=== PATIENT | male | born 1960 | race Caucasian/White ===

== ENCOUNTER 2018-02-19 22:17 | Inpatient (IN) | payer OTHER ==
[2018-02-19] MEDS ORDERED: NA CHLORIDE 0.9% 1,000 ML ONE (23:03)
[2018-02-19] MEDS ORDERED: ONDANSETRON 4 MG/2 ML VIAL ONE (23:03)
[2018-02-19] MEDS ORDERED: MORPHINE 4 MG/ML SYR ONE (23:03)
[2018-02-19 23:04] LABS: Absolute Lymphocytes (CBC) 3.2 K/uL (0.7-4.9); Absolute Monocytes 1.4 K/uL (0.1-1.3); Absolute Neutrophil 6.2 K/uL (1.8-8.0); Basophils % 0.7 % (0-1.3); Eosinophils % 2.8 % (0-4.4); Hematocrit 46.4 % (39.6-49.0); MCH 31.7 pg (27.0-35.0); MCV 92.4 fL (80-100); MPV 10.1 fL (7.6-11.3); Monocytes % 12.2 % (3.3-12.3); RBC Red Blood Cell Count 5.02 M/uL (4.33-5.43)
[2018-02-19 23:15] LABS: Potassium 3.5 mEq/L (3.6-5.0)
[2018-02-19 23:21] LABS: Albumin 4.4 g/dL (3.2-5.5); Bilirubin Direct 0.1 mg/dL (0-0.2); Bilirubin Total 0.8 mg/dL (0.3-1.2)
[2018-02-20 00:40] LABS: Urine Blood 2+ (NEG); Urine Glucose NEGATIVE (NEG); Urine Protein NEGATIVE (NEG)
[2018-02-20 00:50] LABS: Urine Bacteria <20 /HPF (NONE SEEN); Urine Culture Reflex Order NOT NEEDED
--- NOTE | 2018-02-20 01:03 | ER ---
Nurse's Notes [facility] Name: Harriet Sanders Age: 57 yrs Sex: Male : 1960 Arrival Date: 02/19/2018 Time: 22:19 Bed 6 Private MD: Rosalia Manzano C Diagnosis: Calculus of lower urinary tract Presentation: 02/19 22:35 Presenting complaint: Patient states: right flank pain, hx of kidney stones started tl3 today. Transition of care: patient was not received from another setting of care. Onset of symptoms was February 19, 2018 at 22:36. Risk Assessment: Do you want to hurt yourself or someone else? Patient reports no desire to harm self or others. Initial Sepsis Screen: Does the patient meet any 2 criteria? No. Patient's initial sepsis screen is negative. Does the patient have a suspected source of infection? No. Patient's initial sepsis screen is negative. Care prior to arrival: None. 22:35 Method Of Arrival: Ambulatory tl3 22:35 Acuity: WAQAS 3 tl3 Triage Assessment: 22:37 General: Appears distressed, uncomfortable, Behavior is cooperative. tl3 22:41 GI: actively vomiting in triage. tl3 Historical: - Home Meds: 22:37 Lisinopril Oral [Active]; aspirin 81 mg Oral chew 1 tab once daily [Active]; tl3 02/20 02:19 carvedilol 6.25 mg oral tab 1 tab 2 times per day [Active]; ao - PMHx: 02:15 Hypertension; GERD; ao - PSHx: 02/19 22:37 Knee surgery; tl3 - Immunization history:: Adult Immunizations up to date. - Social history:: Smoking status: unknown. - Ebola Screening: : Patient denies travel to an Ebola-affected area in the 21 days before illness onset. Screenin:11 Abuse screen: Denies threats or abuse. Denies injuries from another. Nutritional ao screening: No deficits noted. Tuberculosis screening: No symptoms or risk factors identified. Fall Risk None identified. Assessment: 23:10 General: Appears in no apparent distress. uncomfortable, Behavior is calm, cooperative, ao appropriate for age. Pain: Complains of pain in Right flank Pain currently is 8 out of 10 on a pain scale. Neuro: Level of Consciousness is awake, alert, obeys commands, Oriented to person, place, time, situation, Appropriate for age Moves all extremities. Speech is normal, Facial symmetry appears normal, Pupils are PERRLA. Cardiovascular: Capillary refill < 3 seconds Patient's skin is warm and dry. Respiratory: Airway is patent Respiratory effort is even, unlabored, Respiratory pattern is regular, symmetrical. GI: Abd is soft and non tender X 4 quads. : Reports pain in right flank(s). EENT: No signs and/or symptoms were reported regarding the EENT system. Derm: Musculoskeletal: Circulation, motion, and sensation intact. Range of motion:. 23:44 Reassessment: Patient appears in no apparent distress at this time. Patient and/or ao family updated on plan of care and expected duration. Pain level reassessed. Patient is alert, oriented x 3, equal unlabored respirations, skin warm/dry/pink. 02/20 00:47 Reassessment: Patient appears in no apparent distress at this time. Patient and/or ao family updated on plan of care and expected duration. Pain level reassessed. Patient is alert, oriented x 3, equal unlabored respirations, skin warm/dry/pink. 01:14 Reassessment: Received an verbal order from Dr jones to medicate patient with morphine ao 4 mg and Zofran 4 mg. 01:17 Reassessment: Patient to be admitted to the hospital. Patient aware and agree with POC. ao 02:02 Reassessment: Patient appears in no apparent distress at this time. Patient and/or ao family updated on plan of care and expected duration. Pain level reassessed. Patient is alert, oriented x 3, equal unlabored respirations, skin warm/dry/pink. Patient to be taking to his room. Vital Signs: 02/19 22:37 BP 226 / 114; Pulse 74; Resp 18; Temp 98.0; Pulse Ox 98% ; Weight 113.4 kg; Height 6 tl3 ft. 2 in. (187.96 cm); 23:12 BP 171 / 89; Pulse 73; Resp 28; Pulse Ox 94% on R/A; ao 23:44 BP 152 / 82; Pulse 75; Resp 21; Pulse Ox 96% ; Pain 0/10; ao 02/20 00:47 BP 155 / 80; Pulse 78; Resp 17; Pulse Ox 95% ; Pain 0/10; ao 02:02 BP 139 / 78; Pulse 76; Resp 17; Pulse Ox 100% on R/A; Pain 0/10; ao 06/ 22:37 Body Mass Index 32.10 (113.40 kg, 187.96 cm) tl3 ED Course: 02/19 22:19 Patient arrived in ED. es 22:19 Rosalia Manzano MD is Private Physician. es 22:36 Triage completed. tl3 22:37 Arm band placed on right wrist. tl3 22:41 Nick Shore MD is Attending Physician. tw4 22:55 Initial lab(s) drawn, by ED staff, sent to lab. Inserted saline lock: 18 gauge in left aa1 antecubital area, using aseptic technique. ,using aseptic technique. by tech. Triny 22:58 Radiology exam delayed due to pt requested pain meds prior to ct. cw1 22:59 Trey Mora, RN is Primary Nurse. ao 23:12 Patient has correct armband on for positive identification. Pulse ox on. NIBP on. ao 23:25 CT Stone Protocol In Process Unspecified. EDMS 02/20 00:59 Rosalia Manzano MD is Hospitalizing Provider. tw4 02:26 No provider procedures requiring assistance completed. Patient admitted, IV remains in ao place. Administered Medications: 02/19 22:59 CANCELLED (Physician Discretion): NS 0.45 % with KCl 20 mEq/L 1000 ml IV at 125 ml/hr aa1 once 23:09 Drug: morphine 4 mg Route: IVP; Site: left antecubital; ao 02/20 00:10 Follow up: Response: No adverse reaction; Pain is decreased ao 02/19 23:09 Drug: Zofran 4 mg Route: IVP; Site: left antecubital; ao 02/20 00:10 Follow up: Response: No adverse reaction ao 02/19 23:09 Drug: NS 0.9% 1000 ml Route: IV; Rate: 1000 ml; Site: left antecubital; ao 02/20 02:27 Follow up: IV Status: Completed infusion; IV Intake: 1000ml ao 01:16 Drug: morphine 4 mg Route: IVP; Site: left antecubital; ao 01:43 Follow up: Response: No adverse reaction ao 01:16 Drug: Zofran 4 mg Route: IVP; Site: left antecubital; ao 01:44 Follow up: Response: No adverse reaction ao 01:57 Drug: TORadol 30 mg Route: IVP; Site: left antecubital; ao 02:28 Follow up: Response: No adverse reaction ao Intake: 02:27 IV: 1000ml; Total: 1000ml. ao Outcome: 01:02 Decision to Hospitalize by Provider. tw4 02:26 Admitted to Med/surg accompanied by tech, room 209, with chart, Report called to [place] LVN 02:26 Condition: stable 02:26 Instructed on the need for admit. 02:28 Patient left the ED. ao Signatures: Dispatcher [employer] Sabrina Martin RN RN aa1 Lizett Chow Crystal cw1 Trey Mora RN RN ao Wadley, Terrence, MD MD tw4 Janee Coleman RN RN tl3 Corrections: (The following items were deleted from the chart) 02:19 06/02 22:37 Home Meds: Metoprolol Tartrate Oral; tl3 ao
--- NOTE | 2018-02-20 01:03 | EDPHYS ---
Physician Documentation [facility] Name: Harriet Sanders Age: 57 yrs Sex: Male : 1960 Arrival Date: 02/19/2018 Time: 22:19 Bed 6 Private MD: Rosalia Manzano C ED Physician Nick Shore Historical: - Home Meds: 02/19 22:37 Lisinopril Oral [Active]; aspirin 81 mg Oral chew 1 tab once daily [Active]; tl3 02/20 02:19 carvedilol 6.25 mg oral tab 1 tab 2 times per day [Active]; ao - PMHx: 02:15 Hypertension; GERD; ao - PSHx: 02/19 22:37 Knee surgery; tl3 - Immunization history:: Adult Immunizations up to date. - Social history:: Smoking status: unknown. - Ebola Screening: : Patient denies travel to an Ebola-affected area in the 21 days before illness onset. Vital Signs: 22:37 BP 226 / 114; Pulse 74; Resp 18; Temp 98.0; Pulse Ox 98% ; Weight 113.4 kg; Height 6 tl3 ft. 2 in. (187.96 cm); 23:12 BP 171 / 89; Pulse 73; Resp 28; Pulse Ox 94% on R/A; ao 23:44 BP 152 / 82; Pulse 75; Resp 21; Pulse Ox 96% ; Pain 0/10; ao 02/20 00:47 BP 155 / 80; Pulse 78; Resp 17; Pulse Ox 95% ; Pain 0/10; ao 02:02 BP 139 / 78; Pulse 76; Resp 17; Pulse Ox 100% on R/A; Pain 0/10; ao 02/19 22:37 Body Mass Index 32.10 (113.40 kg, 187.96 cm) tl3 MDM: 02/19 22:41 Patient medically screened. tw4 02/19 22:43 Order name: Amylase, Serum; Complete Time: 07:07 tw4 02/19 22:43 Order name: Basic Metabolic Panel; Complete Time: 07:07 tw4 02/19 22:43 Order name: CBC with Diff; Complete Time: 07:07 4 02/19 22:43 Order name: Creatinine for Radiology; Complete Time: 07:07 tw4 02/19 22:43 Order name: Hepatic Function; Complete Time: 07:07 tw4 02/19 22:43 Order name: Lipase; Complete Time: 07:07 tw4 02/19 22:43 Order name: Urine Microscopic Only; Complete Time: 07:07 tw4 02/19 22:43 Order name: CT Stone Protocol; Complete Time: 07:07 tw4 02/20 00:30 Order name: Urine Dipstick--Ancillary (enter results); Complete Time: 07:07 ms 02/19 22:43 Order name: IV Saline Lock; Complete Time: 22:57 tw4 02/19 22:43 Order name: Labs collected and sent; Complete Time: 22:57 tw4 02/19 22:43 Order name: Urine Dipstick-Ancillary (obtain specimen); Complete Time: 00:19 tw4 02/20 01:35 Order name: CONS Pharmacy Consult EDMS 02/20 01:35 Order name: NPO EDMS 02/20 01:37 Order name: CONS Pharmacy Consult EDMS 02/20 01:37 Order name: NPO EDMS Administered Medications: 22:59 CANCELLED (Physician Discretion): NS 0.45 % with KCl 20 mEq/L 1000 ml IV at 125 ml/hr aa1 once 23:09 Drug: morphine 4 mg Route: IVP; Site: left antecubital; ao 02/20 00:10 Follow up: Response: No adverse reaction; Pain is decreased ao 02/19 23:09 Drug: Zofran 4 mg Route: IVP; Site: left antecubital; ao 02/20 00:10 Follow up: Response: No adverse reaction ao 02/19 23:09 Drug: NS 0.9% 1000 ml Route: IV; Rate: 1000 ml; Site: left antecubital; ao 02/20 02:27 Follow up: IV Status: Completed infusion; IV Intake: 1000ml ao 01:16 Drug: morphine 4 mg Route: IVP; Site: left antecubital; ao 01:43 Follow up: Response: No adverse reaction ao 01:16 Drug: Zofran 4 mg Route: IVP; Site: left antecubital; ao 01:44 Follow up: Response: No adverse reaction ao 01:57 Drug: TORadol 30 mg Route: IVP; Site: left antecubital; ao 02:28 Follow up: Response: No adverse reaction ao Disposition: 02/20/18 01:02 Hospitalization ordered by Rosalia Manzano for Observation. Preliminary diagnosis is Calculus of lower urinary tract. - Bed requested for Telemetry/MedSurg (observation). - Status is Observation. ao - Condition is Stable. - Problem is new. - Symptoms have improved. UTI on Admission? No Addendum: 03/04/2018 06:56 Addendum: Pt is a 57 year old male that complains of right flank pain that started t w4 today. Pt states that he has mild nausea and but no vomiting. Pt has had a history of kidney stones and that this pain feels similar. Addendum: ROS: Constitutional: negative for fever chills Resp: negative for SOB, MCNEILL CV: negative for CP, MCNEILL, palpitations Abdomen: negative for abdominal pain, vomiting diarrhea Back: positive for flank pain, negative for injury Ext; negative for injury, edema. Addendum: PE: General: well developed well nourished male in mild distress, HEENT: PERRLA, EOMI Resp: CTAB, no resp distress CV: RRR, nl S1, S2 Abdomen: normal BS, ND/NT Back: right CVA tenderness no vertebral tenderness. Addendum: . 07:07 Addendum: ED course: pt found to have 4 mm calculus in the right ureter with mild t w4 hydronephrosis. pt received Toradol and Morphine states that he feels better. Pt received IVF with NS. Pt told to followup with Urology and told to return if symptoms worsen. Signatures: Dispatcher [employer] EDMS Sarah Carmen RN RN kl Kern, Alissa, RN RN aa1 Trey Mora RN RN ao Wadley, Terrence, MD MD tw4 Janee Coleman RN RN tl3 Corrections: (The following items were deleted from the chart) 02/19 22:59 22:43 NS 0.45 % with KCl 20 mEq/L 1000 ml IV at 125 ml/hr once ordered. tw4 aa1 02/20 01:58 01:02 Hospitalization Ordered by Rosalia Manzano MD for Observation. Preliminary diagnosis is kl Calculus of lower urinary tract. Bed requested for Telemetry/MedSurg (observation). Status is Observation. Condition is Stable. Problem is new. Symptoms have improved. UTI on Admission? No. tw4 02:19 02/19 22:37 Home Meds: Metoprolol Tartrate Oral; tl3 ao 02/20 02:28 01:58 02/20/2018 01:02 Hospitalization Ordered by Rosalia Manzano MD for Observation. ao Preliminary diagnosis is Calculus of lower urinary tract. Bed requested for Telemetry/MedSurg (observation). Status is Observation. Condition is Stable. Problem is new. Symptoms have improved. UTI on Admission? No. kl
[2018-02-20] MEDS ORDERED: ONDANSETRON 4 MG/2 ML VIAL ONE (01:13)
[2018-02-20] MEDS ORDERED: MORPHINE 4 MG/ML SYR ONE (01:13)
[2018-02-20] MEDS ORDERED: HYDROMORPHONE HCL 1 MG/ML INJ IV PRN ×2 (01:35→09:49)
[2018-02-20] MEDS ORDERED: MORPHINE 2 MG/ML SYR IV PRN (01:35)
[2018-02-20] MEDS ORDERED: ONDANSETRON 4 MG/2 ML VIAL IV PRN ×2 (01:35→10:33)
[2018-02-20] MEDS ORDERED: KETOROLAC 30 MG/ML INJ ONE (01:54)
[2018-02-20 03:01] VITALS: BMI 32.1
[2018-02-20] MEDS ORDERED: HYDROMORPHONE HCL 2 MG/ML inj ONE (05:11)
--- NOTE | 2018-02-20 09:25 | RAD REPORT ---
EXAM DESCRIPTION: CT - Stone Protocol - 02/20/2018 2:16 am CLINICAL HISTORY: Abdominal pain. Right flank pain COMPARISON: 11/2016 TECHNIQUE: Computed axial tomography of the abdomen pelvis was obtained without oral or IV contrast. Lack of IV and oral contrast limits evaluation of solid organs, bowel, and vessels. Coronal reformat maribel images were obtained and reviewed. A preliminary report was generated by [employer] and reviewed prior to this dictation tissue All CT scans are performed using dose optimization technique as appropriate and may include automated exposure control or mA/KV adjustment according to patient size. FINDINGS: Mild right hydronephrosis is present. A renal calculus is not seen. The right ureter is di lated. A 4 millimeter calculus Hounsfield unit 859 is present within the distal right ureter. A left renal calculus is not seen. The liver, spleen, pancreas and adrenals appear grossly normal There is no evidence of diverticulitis. The appendix appears normal Small inguinal hernias contain fat IMPRESSION: Negative for a genitourinary calculus
[2018-02-20] MEDS: HYDROMORPHONE HCL 2 MG/ML inj IV PRN ×4 (09:57→21:46)
[2018-02-20 10:09] LABS: Urine Appearance TURBID; Urine Bilirubin NEGATIVE (NEG); Urine Blood 3+ (NEG); Urine Color DK YELLOW; Urine Glucose NEGATIVE (NEG); Urine Protein NEGATIVE (NEG); Urine Specific Gravity 1.025 (1.005-1.030); Urine Urobilinogen 0.2 mg/dL (0.2-1.0); Urine pH 5.5 (5.0-7.0)
[2018-02-20 10:19] LABS: Urine Microscopic Reflex ORDER UMIC
[2018-02-20 10:22] LABS: Urine Amorphous Sediment 2+ /HPF (NONE SEEN); Urine Bacteria <20 /HPF (NONE SEEN); Urine Culture Reflex Order NOT NEEDED
[2018-02-20] MEDS: LISINOPRIL 20 MG TAB PO SCH (10:53)
[2018-02-20] MEDS: NA CHLORIDE 0.9% 1,000 ML IV SCH ×2 (10:53→21:47)
[2018-02-20] MEDS: CEFTRIAXONE/SWI 1gm 1 GM/10 ML SYR IVP SCH ×2 (10:54→21:47)
[2018-02-20 10:57] LABS: Absolute Lymphocytes (CBC) 2.2 K/uL (0.7-4.9); Absolute Monocytes 1.1 K/uL (0.1-1.3); Absolute Neutrophil 6.1 K/uL (1.8-8.0); Basophils % 0.6 % (0-1.3); Eosinophils % 1.7 % (0-4.4); Hematocrit 43.7 % (39.6-49.0); MCH 31.4 pg (27.0-35.0); MCV 93.4 fL (80-100); MPV 9.8 fL (7.6-11.3); Monocytes % 11.4 % (3.3-12.3); RBC Red Blood Cell Count 4.68 M/uL (4.33-5.43)
[2018-02-20] MEDS ORDERED: CARVEDILOL 6.25 MG TAB PO ONE (11:00)
[2018-02-20] MEDS: PANTOPRAZOLE 40MG TABLET PO SCH (11:04)
[2018-02-20 11:07] LABS: Potassium 3.9 mEq/L (3.6-5.0)
[2018-02-20 11:08] LABS: Magnesium 2.1 mg/dL (1.8-2.5)
--- NOTE | 2018-02-20 11:50 | HP ---
Date of Admission: 02/20/2018 Chief Complaint: Abdominal pain. History Of Present Illness: This is a 57-year-old male patient, started to have abdominal pain in th e right anterior flank and right lower quadrant, and it was off and on throughout the day, but as the day went on, severity got worse and then pain started to radiate to right posterior flank region. T he patient has some nausea and vomiting with this. No fever. No chills. No hematuria. No dysuria. He came into emergency room with this worsening of the pain. After he was evaluated in ER, he was admitted to the hospital with right-sided ureteric stone with obstruction. The patient has hydroneph rosis as a result of this obstructing ureteric stone. He has required IV pain medications. Last quang n medication administration was about 15 minutes before I saw him this morning. Allergies: NO KNOWN ALLERGIES. Medications: List reviewed. Review of Systems: Genitourinary: As mentioned above. All other systems reviewed and negative. Past Medical History: Significant for hypertension, hyperlipidemia, impaired fasting glucose, gastro esophageal reflux disease. Past Surgical History: Arthroscopic knee surgery. Social History: Prior history of smoking, not at present time. Use of alcohol negative. Family History: Significant for hypertension, diabetes, and coronary artery disease. Physical Examination: Vital Signs: Height 6 feet 2 inches, weight 250 pounds. Temperature 97.9, pulse 81, respiratory rat e 18, blood pressure 143/74, oxygen saturation 96%. General: Awake, alert, oriented, not in distress. HEENT: Head atraumatic, normocephalic. Conjunctivae nonerythematous. Sclerae white. Mouth, no thr ush or edema noted. Ears/Nose, no mass, lesion, discharge noted. Neck: Supple. No JVD, lymph nodes, bruit, thyromegaly noted. Lungs: Bilateral good equal air entry. Clear to auscultation. No rhonchi. No rales. Heart: Normal heart sounds, no murmur or gallop. Abdomen: The patient has tenderness at the right anterior flank and right lower quadrant region. No rebound tenderness. Bowel sounds normoactive. No distention. No guarding. No rigidity. No hepat osplenomegaly. No bruit. Extremities: No leg edema. No calf tenderness. Skin: No rash, ulcer, cellulitis. Lymphatics: No lymph node enlargement in neck, supraclavicular, infraclavicular region. Neuro: No focal neurological deficit. Chest: Unremarkable. External Genitalia: Deferred. Rectal: Deferred. Laboratory Data: White count 11.1, hemoglobin 15.9, platelets 196. Sodium 138, potassium 3.5, chlor le 106, bicarb 24, BUN 14, creatinine 1.18, glucose 155. Liver function tests unremarkable. Amylas e 27, lipase 27. Urinalysis; nitrite negative, esterase negative, wbc's less than 5, bacteria less t ernst 20. CAT scan per kidney stone protocol shows evidence of 4 mm stone in the right distal ureter c ausing hydronephrosis and periureteral stranding. Impression: 1.Right ureter stone with hydronephrosis. 2.Hypertension. 3.Hyperlipidemia. 4.Gastroesophageal reflux disease. 5.Impaired fasting glucose. Plan: Admit the patient to hospital for further evaluation and management of this problem. The aneesh ent is appropriate for inpatient and is expected to spend 2 midnights in hospital. He requires IV pa in medication and we will continue current pain medications, which seems to be helping him. We will give him IV fluid per order, start empiric IV antibiotics, ceftriaxone. Urology consultation has bee n requested from Dr. Alicea and we will continue home medications per order including his antihyperten sive medications. We will keep him n.p.o. at this time and SCD was ordered for DVT prophylaxis. Det ails and plan of treatment discussed with the patient. The patient is at acceptable risk from any ur ological procedure. MARKY/MODL Voice ID: [id number]
[2018-02-20] MEDS ORDERED: POTASSIUM 25 MEQ EFFERV TAB PO ONE (19:00)
[2018-02-20] MEDS: CARVEDILOL 6.25 MG TAB PO SCH (21:45)
[2018-02-21 04:57] LABS: Potassium 3.7 mEq/L (3.6-5.0)
[2018-02-21] MEDS: HYDROMORPHONE HCL 2 MG/ML inj IV PRN (05:07)
[2018-02-21] MEDS: NA CHLORIDE 0.9% 1,000 ML IV SCH ×2 (05:08→17:08)
[2018-02-21] MEDS: PANTOPRAZOLE 40MG TABLET PO SCH (05:08)
[2018-02-21] MEDS ORDERED: KCL 20 MEQ/100 mL IVPB 20 MEQ/100 ML BAG IV SCH (06:00)
--- NOTE | 2018-02-21 07:04 | RAD REPORT ---
EXAM DESCRIPTION: RAD - Abdomen 1 View (KUB) - 02/21/2018 6:28 am CLINICAL HISTORY: Kidney stone COMPARISON: CT February 19 FINDINGS: A small oval 4 millimeter calcification is present superimposed on the right lateral brooke n of the lower sacrum. Size and location correspond to the right ureteral calculus seen on the February 19 CT study. Delete select No new or progressive finding. IMPRESSION: Distal right ureteral calculus shows no change in size or location from CT imaging.
[2018-02-21] MEDS ORDERED: HYDROMORPHONE HCL 1 MG/ML INJ IV PRN (07:26)
[2018-02-21] MEDS ORDERED: HYDROMORPHONE HCL 0.5 MG/0.5 ML INJ IV PRN (07:51)
[2018-02-21] MEDS: KETOROLAC 30 MG/ML INJ IV PRN ×2 (07:54→18:29)
[2018-02-21] MEDS: LISINOPRIL 20 MG TAB PO SCH (08:01)
[2018-02-21] MEDS: CEFTRIAXONE/SWI 1gm 1 GM/10 ML SYR IVP SCH ×2 (08:02→21:38)
[2018-02-21] MEDS: DOCUSATE NA 100 MG CAP PO SCH ×2 (08:02→21:36)
[2018-02-21] MEDS: CARVEDILOL 6.25 MG TAB PO SCH ×2 (08:09→21:36)
[2018-02-21] MEDS ORDERED: OMEPRAZOLE PO SCH (09:00)
--- NOTE | 2018-02-21 09:48 | EKG ---
Test Date: 2018-02-21 Test Time: 09:10:39 Marble Machine Operator: MARLENA MEASUREMENT RESULTS: Intervals: Rate: 76 FL: 182 QRSD: 102 QT: 396 QTc: 445 Excel: P: 40 FL: 182 QRS: 23 T: 121 INTERPRETIVE STATEMENTS: Normal sinus rhythm ST & T wave abnormality, consider lateral ischemia Abnormal ECG Compared to ECG 11/06/2014 06:50:50 ST (T wave) deviation now present Sinus bradycardia no longer present T-wave abnormality no longer present Possible ischemia still present Electronically Signed On 02-21-18 09:47:20 CDT by Jesus Manuel Alas
--- NOTE | 2018-02-21 13:30 | CON ---
History Of Present Illness: A pleasant 57-year-old gentleman, started to have pain about 2 days ago in right anterior flank and right lower quadrant and was intermittent. It got worse, so he came to [facility] emergency room where a CAT scan was done showing a 4 mm stone in right distal ureter, Hounsfield units 850. Also has a small stone in the right kidney. Denies fever, chills. No hematuria. No dys uria. He has been having some pain, on Dilaudid. We gave him some Toradol this morning. I offered him 2 options going for ureteroscopy, stone extraction, and stent placement today versus awaiting for the lithotripsy machine in the morning. He wishes to option #2. Allergies: NO KNOWN DRUG ALLERGIES. Home Medications: Include Prinivil, omeprazole, carvedilol. He takes no blood thinners. He is curr ently on Rocephin in the hospital and Dilaudid for pain 1 mg IV q.4 hours p.r.n. We will add Toradol 30 mg q.6-8 hours p.r.n. breakthrough for him. Past Medical History: Hypertension, hyperlipidemia, impaired glucose fasting, GERD. Past Surgical History: Arthroscopic knee. Social History: Prior history of smoking, none currently. No alcohol use. No drug use. Family History: Significant for hypertension, diabetes, coronary artery disease. Physical Examination: General: The patient is 6 feet 2 inches, weighs 250 pounds. Vital Signs: Temperature 99.1, pulse 78, respirations 16, BP 170/86, sats 95%. Pain is 10/10. HEENT: Atraumatic, normocephalic. Chest: Clear. Heart: S1, S2. Abdomen: Soft, nontender. Minimal right flank tenderness. Extremities: Normal range of motion. : Deferred for now. Laboratory Data: White count down to 9.6 from 11.1, hemoglobin 14.7, hematocrit 43.7, platelet count 183. Chemistry; sodium 138, potassium 3.7, chloride 107, carbon dioxide 27, BUN 13, creatinine 1.1, GFR 70, glucose 94, calcium 8.2. Urine shows appearance turbid, pH 5.5, urine specific gravity 1025 , ketone negative, blood 3+, nitrite negative, leukocyte esterase negative, rbc's 5-10, wbc's less th an 5, squamous cells less than 5, amorphous sediment 2+, bacteria less than 20. Urine culture was no t reflexed. Assessment: A 4 mm stone in right distal ureter that is seen on KUB, Hounsfield units 850. Options were reviewed the patient include ureteroscopy, stone extraction, basket versus ESWL. He wishes to h ave ESWL plus or minus stent in a.m. He will be n.p.o. after midnight. Continue IV fluids. Add Tor adol for pain. PB/MODL Voice ID: [id number] Report ID: [id number]
--- NOTE | 2018-02-21 18:26 | ECHO ---
HEIGHT: 6 ft 2 in WEIGHT: 250 lb 0 oz DATE OF STUDY: 02/21/[address]: 2-DIMENSIONAL: YES M.MODE: YES DOPPLER: YES COLOR FLOW: YES TDS: NO PORTABLE: NO DEFINITY: NO BUBBLE STUDY: NO DIAGNOSIS: ABNORMAL EKG, CARDIAC CLEARANCE CARDIAC HISTORY: CATHERIZATION: NO SURGERY: NO PROSTHETIC VALVE: NO PACEMAKER: NO MEASUREMENTS (cm) DIASTOLIC (NORMALS) SYSTOLIC (NORMALS) IVSd 1.1 (0.6-1.2) LA Diam 4.9 (1.9-4.0) LVEF 60-69% LVIDd 5.1 (3.5-5.7) LVIDs 3.1 (2.0-3.5) %FS 24% LVPWd 1.0 (0.6-1.2) Ao Diam 3.2 (2.0-3.7) 2 DIMENSIONAL ASSESSMENT: RIGHT ATRIUM: NORMAL LEFT ATRIUM: DILATED RIGHT VENTRICLE: NORMAL LEFT VENTRICLE: NORMAL TRICUSPID VALVE: NORMAL MITRAL VALVE: NORMAL PULMONIC VALVE: NORMAL AORTIC VALVE: NORMAL PERICARDIAL EFFUSION: NONE AORTIC ROOT: NORMAL LEFT VENTRICULAR WALL MOTION: NORMAL. DOPPLER/COLOR FLOW: MILD MITRAL REGURGITATION AND TRICUSPID REGURGITATION. NORMAL RIGHT VENTRICULAR SYSTOLIC PRESSURE. IMPAIRED LEFT VENTRICULAR RELAXATION. COMMENTS: NORMAL LEFT VENTRICULAR EJECTION FRACTION. DILATED LEFT ATRIUM. MILD MITRAL AND TRICUSPID REGURGITATION. IMPAIRED LEFT VENTRICULAR RELAXATION. TECHNOLOGIST: DEANNA VAUGHAN RDCS
--- NOTE | 2018-02-22 00:42 | PN ---
Date of Progress Note: 02/21/2018 Subjective: The patient was seen this morning for followup. He was complaining of pain in his right flank and right lower quadrant region. He was getting Dilaudid 1 mg every 4 hours, which was controlling his pain very well until this morning when he moved a lot and it was 2 hours after he received the last dose of pain medication when I saw him and he was having lot of pain, was requesting some pain medication. Objective: Vital Signs: Reviewed. HEENT: Unremarkable. Lungs: Clear to auscultation. Heart: Sounds normal. Abdomen: Soft, bowel sounds normal. No guarding, rigidity, or distention. Presence of right lower quadrant and right flank tenderness. Extremities: No leg edema. Laboratory Data: Sodium 138, potassium 3.7, chloride 107 ,bicarb 27, BUN 13, creatinine 1.08, glucose 94. Impression: 1. Right ureter stone with hydronephrosis. 2. Hypertension. 3. Abnormal EKG. Plan: We will continue current IV antibiotic, IV fluid and nurse will provide pain medication 1 mg Dilaudid around 7:30 a.m. this morning and was told that from that point on the patient to get his Dilaudid every 4 hours per order as needed, starting at 7:[address] Alicea saw the patient, he was planning to do lithotripsy today but because of the patient's abnormal EKG, procedure was postponed until we get cardiac clearance and echocardiogram was ordered. MARKY/GILBERT Voice ID: [id number] Report ID: [id number] MANE
[2018-02-22] MEDS: NA CHLORIDE 0.9% 1,000 ML IV SCH ×2 (02:27→13:00)
[2018-02-22] MEDS: KETOROLAC 30 MG/ML INJ IV PRN ×2 (02:27→16:05)
[2018-02-22 05:39] LABS: Potassium 3.7 mEq/L (3.6-5.0)
[2018-02-22] MEDS ORDERED: KCL 20 MEQ/100 mL IVPB 20 MEQ/100 ML BAG IV SCH (06:00)
[2018-02-22] MEDS: PANTOPRAZOLE 40MG TABLET PO SCH (06:06)
[2018-02-22] MEDS: DOCUSATE NA 100 MG CAP PO SCH (09:00)
[2018-02-22] MEDS: LISINOPRIL 20 MG TAB PO SCH (10:42)
[2018-02-22] MEDS: CARVEDILOL 6.25 MG TAB PO SCH (10:42)
[2018-02-22] MEDS: CEFTRIAXONE/SWI 1gm 1 GM/10 ML SYR IVP SCH (10:42)
--- NOTE | 2018-02-22 13:03 | RAD REPORT ---
EXAM DESCRIPTION: RAD - Abdomen 1 View (KUB) - 02/22/2018 10:59 am CLINICAL HISTORY: Abdomen pain. FINDINGS: The bowel gas pattern is unremarkable. The suspected right ureteral calculus overlying the sacrum is unchanged in position when compared to February 21, 2018
[2018-02-22] MEDS ORDERED: Ringers Lactate 1,000 ML IV ONE (13:17)
[2018-02-22] MEDS ORDERED: HYDROMORPHONE HCL 1 MG/ML INJ IV PRN (13:34)
[2018-02-22] MEDS ORDERED: PROPOFOL 200 MG/20 ML VIAL IV ONE (13:50)
[2018-02-22] MEDS ORDERED: MIDAZOLAM HCL 2 MG/2 ML INJ ONE (13:51)
[2018-02-22] MEDS ORDERED: FENTANYL CITR 100 MCG/2 ML ONE (13:51)
[2018-02-22] MEDS ORDERED: ONDANSETRON HCL 40 MG/20 ML VIAL ONE (13:53)
[2018-02-22] MEDS ORDERED: NS 0.9% VIAL 10 ML ONE (14:44)
[2018-02-22 15:45] VITALS: O2SAT 97
[2018-02-22 18:12] VITALS: BP 131/63; TEMP 97.8
[2018-02-22] MEDS ORDERED: PHENAZOPYRIDINE 100MG TAB PO ONE (18:50)
--- NOTE | 2018-02-22 19:58 | CON ---
Date of Consultation: 02/22/[address] Manzano's service on 02/20/2018. I saw the patient on 02/22/2018 for cardiac clearance prior to lithotripsy by Dr. Alicea. History Of Present Illness: Mr. Sanders is a 57-year-old white male, has a history of hypertension, gastroesophageal reflux disease, family history of heart disease for many years. He came in with nephrolithiasis. EKG showed nonspecific changes suggestive of inferolateral ischemia. The p atient had no symptoms. No chest pain. No nausea, vomiting, diaphoresis, PND, orthopnea, pedal marilu a, palpitations, or syncope. His EKG is more consistent with left ventricular hypertrophy. Echocard iogram which was done yesterday was normal. Chest x-ray was normal. Past Medical History: As stated above. Allergies: NONE. Review of Systems: Negative. Social History: Negative. Family History: Positive for heart disease. Medications: At home include Coreg, lisinopril, and aspirin. Physical Examination: Vital Signs: Stable. Afebrile. HEENT: Negative. Neck: Supple with no bruit. Chest: Clear. Cardiac: Revealed a regular rhythm and rate with S4 gallops. No murmurs or rubs. Abdomen: Benign. Extremities: Revealed no clubbing, cyanosis, or edema. Diagnostic Data: All within normal limits, except for the EKG as stated earlier. Impression And Plan: I think Mr. Sanders's EKG is nonspecific. He has no cardiac symptoms and no cl inical findings of congestive heart failure or coronary artery disease. He has a normal echo and nor mal chest x-ray, normal troponin, and I believe he is at low risk to have his lithotripsy done. His blood pressure is well controlled and his gastroesophageal reflux disease is well controlled. I will follow him along as needed. EDDIE/GILBERT Voice ID: [id number] Report ID: [id number]
--- NOTE | 2018-02-23 02:26 | DS ---
Date of Discharge: 02/22/2018 Disposition: Discharged to go home. Physical Examination: HEENT: Unremarkable. Lungs: Clear to auscultation. Heart: Sounds normal. Abdomen: Soft. Bowel sounds normal. No guarding, rigidity, tenderness, or distention. Extremities: No leg edema. Discharge Medications And Instructions: 1.Continue all prior home medications. 2.Follow up at my office in 2 weeks. 3.Follow up with Dr. Angulo in 1 to 2 weeks and the patient to get stress test with Dr. Angulo at his office. Diagnostic Data: Echocardiogram done yesterday showing ejection fraction 60% to 69%, impaired LV rel axation, dilated left atrium, mild mitral and tricuspid regurgitation. EKG; nonspecific ST-T changes . Laboratory Data: This morning, sodium 139, potassium 3.7, chloride 105, bicarb 28, BUN 10, creatinin e 1.18, glucose 102. Hospital Course: This 57-year-old pleasant male patient was admitted to the hospital with right-side d abdominal pain. Please see dictated H and P for more information. The patient started to have rig ht lower quadrant abdominal pain and then it radiated to right posterior flank region. After he came into the emergency room, further evaluation revealed patient had right-sided stone in the distal ure ter about 4 mm stone causing hydronephrosis and perinephric and periureteral stranding. The patient was admitted to the hospital. He required IV pain medications, Dilaudid about 1 mg every 4 hours for pain control. He was also given IV antibiotic, Ceftriaxone, and IV fluid was given. Urology consul tation was obtained from Dr. Alicea. The patient's EKG had shown some nonspecific ST-T changes, so ec hocardiogram was obtained which showed normal left ventricular wall motion, normal ejection fraction and Dr. Angulo gave cardiac clearance and informed the patient that he would like to do elective out patient stress test on him and I have advised the patient to follow with Dr. Angulo for this. His b lood pressure was higher than normal, but we will need to make the decision on outpatient basis when he is not in pain to decide whether he needs any adjustment on antihypertensive medication or not. D uring this hospitalization, his usual home medications were continued. Today, Dr. Alicea took him to surgery and he called and informed me that he did not find any evidence of stone and the patient prob ably passed the stone prior to surgery as his pain had relieved and Dr. Alicea did not have to do any lithotripsy or stent placement. Dr. Alicea has released him to go home from Urology point of view. M edically, the patient is stable for discharge. Final Diagnoses: 1.Right ureter stone with hydronephrosis. 2.Hypertension. 3.Hyperlipidemia. 4.Gastroesophageal reflux disease. 5.Impaired fasting glucose. MARKY/MODL Voice ID: [id number] Report ID: [id number]
== END 2018-02-22 19:52 | disposition home or self-care (01) | DRG 694 ==
LOC: ER 22:17 → ERHOLD 02-20 01:33 → OBSVTOIN 02-20 01:33 → INTOOBSV 02-20 01:33 → 2ND 02-20 02:04 → OBSVTOIN 02-20 17:43
PROVIDERS: ADMIT Internal Medicine; ATTEND Internal Medicine
PROC: BT1DZZZ Fluoroscopy of Right Kidney, Ureter and Bladder (ICD-10-PCS; principal; 2018-02-22 14:00)
DX: N13.2 Hydronephrosis with renal and ureteral calculous obstruction (principal); I10 Essential (primary) hypertension; E78.5 Hyperlipidemia, unspecified; E11.8 Type 2 diabetes mellitus with unspecified complications; I25.10 Atherosclerotic heart disease of native coronary artery without angina pectoris; K21.9 Gastro-esophageal reflux disease without esophagitis
CPT/HCPCS: 36415; 50590; 74018; 74176; 76377; 80048; 80076; 81003; 81015; 82150; 83690; 83735; 84132; 85025; 93005; 93306; 96361; 96374; 96375; 99285; J0696; J1170; J2250; J2270; J2405; J3010; J7030; Q9967

== ENCOUNTER 2020-01-26 11:13 | Emergency (ER) | payer OTHER ==
[2020-01-26] MEDS ORDERED: NA CHLORIDE 0.9% 1,000 ML ONE (12:18)
--- NOTE | 2020-01-26 12:27 | RAD REPORT ---
EXAM DESCRIPTION: CT - Head Brain Wo Cont - 01/26/2020 12:20 pm CLINICAL HISTORY: DIZZINESS Headache, drowsiness COMPARISON: No comparisons TECHNIQUE: All CT scans are performed using dose optimization technique as appropriate and may inclu de automated exposure control or mA/KV adjustment according to patient size. FINDINGS: No intracranial hemorrhage, hydrocephalus or extra-axial fluid collection.No areas of brai n edema or evidence of midline shift. The paranasal sinuses and mastoids are clear. The calvarium is intact. IMPRESSION: No acute intracranial abnormality.
--- NOTE | 2020-01-26 12:36 | RAD REPORT ---
EXAM DESCRIPTION: RAD - Chest Single View - 01/26/2020 12:31 pm CLINICAL HISTORY: COUGH Chest pain. COMPARISON: Abdomen 1 View (KUB) dated 02/22/2018; Abdomen 1 View (KUB) dated 02/21/2018; CHEST SINGLE V IEW dated 11/05/2014; CHEST SINGLE VIEW dated 12/03/2008 FINDINGS: Portable technique limits examination quality. The lungs are grossly clear. The heart is normal in size. No displaced fractures. IMPRESSION: No acute intrathoracic process suspected.
[2020-01-26 12:57] LABS: Absolute Lymphocytes (CBC) 1.9 K/uL (0.7-4.9); Basophils % 0.7 % (0-1.3); Hematocrit 43.3 % (39.6-49.0); MPV 10.6 fL (7.6-11.3); RBC Red Blood Cell Count 4.74 M/uL (4.33-5.43)
[2020-01-26 13:18] LABS: ALT/SGPT 40 U/L (12-78); AST/SGOT 21 U/L (15-37); Albumin 3.6 g/dL (3.4-5.0); Alkaline Phosphatase 52 U/L (45-117); BUN Blood Urea Nitrogen 14 mg/dL (7-18); Bicarbonate 26 mmol/L (21-32); Bilirubin Direct 0.1 mg/dL (0-0.2); Bilirubin Total 0.4 mg/dL (0.2-1.0); Glucose Level 125 mg/dL (74-106); Magnesium 2.4 mg/dL (1.8-2.4); NT PRO-BNP 322 pg/mL (<125); Potassium 3.9 mmol/L (3.5-5.1); Protein, Total 7.3 g/dL (6.4-8.2); Sodium Level 139 mmol/L (136-145); Troponin (Emerg Dept Use Only) < 0.02 ng/mL (0.0-0.045)
[2020-01-26] MEDS ORDERED: ASPIRIN 81 MG CHEWABLE TABLET ONE (13:43)
--- NOTE | 2020-01-26 13:52 | EDPHYS ---
Physician Documentation [facility] Name: Harriet Sanders Age: 59 yrs Sex: Male : 1960 Arrival Date: 01/26/2020 Time: 11:17 Bed 20 Private MD: Rosalia Manzano C ED Physician Pal Bunn HPI: 01/25 12:11 This 59 yrs old Male presents to ER via Ambulatory with complaints of katerina Dizziness, Vision Problem. 12:11 The patient presents with dizziness, generalized weakness, lightheadedness. Onset: The katerina symptoms/episode began/occurred just prior to arrival. Context: occurred outdoors, occurred while the patient was working. Modifying factors: The symptoms are alleviated by holding head still, the symptoms are aggravated by movement of head, standing up. Associated signs and symptoms: Pertinent positives: blurred vision. Severity of symptoms: At their worst the symptoms were moderate in the emergency department the symptoms have improved moderately. Patient's baseline: Neuro: alert and fully oriented. The patient has not experienced similar symptoms in the past. Historical: - Allergies: 11:24 No Known Allergies; ss - PMHx: 11:24 GERD; Hypertension; ss - PSHx: 11:24 Knee surgery; ss - Immunization history:: Adult Immunizations up to date. - Social history:: Smoking status: Patient denies any tobacco usage or history of. - Family history:: not pertinent. ROS: 12:11 Constitutional: Negative for fever, chills, and weight loss, Eyes: Negative for injury, katerina pain, redness, and discharge, ENT: Negative for injury, pain, and discharge, Neck: Negative for injury, pain, and swelling, Cardiovascular: Negative for chest pain, palpitations, and edema, Respiratory: Negative for shortness of breath, cough, wheezing, and pleuritic chest pain, Abdomen/GI: Negative for abdominal pain, nausea, vomiting, diarrhea, and constipation, Back: Negative for injury and pain, : Negative for injury, bleeding, discharge, and swelling, MS/Extremity: Negative for injury and deformity, Skin: Negative for injury, rash, and discoloration, Neuro: Negative for headache, weakness, numbness, tingling, and seizure, Psych: Negative for depression, anxiety, suicide ideation, homicidal ideation, and hallucinations, Allergy/Immunology: Negative for hives, rash, and allergies, Endocrine: Negative for neck swelling, polydipsia, polyuria, polyphagia, and marked weight changes, Hematologic/Lymphatic: Negative for swollen nodes, abnormal bleeding, and unusual bruising. Exam: 12:11 Constitutional: This is a well developed, well nourished patient who is awake, alert, katerina and in no acute distress. Head/Face: Normocephalic, atraumatic. Eyes: Pupils equal round and reactive to light, extra-ocular motions intact. Lids and lashes normal. Conjunctiva and sclera are non-icteric and not injected. Cornea within normal limits. Periorbital areas with no swelling, redness, or edema. ENT: Nares patent. No nasal discharge, no septal abnormalities noted. Tympanic membranes are normal and external auditory canals are clear. Oropharynx with no redness, swelling, or masses, exudates, or evidence of obstruction, uvula midline. Mucous membranes moist. Neck: Trachea midline, no thyromegaly or masses palpated, and no cervical lymphadenopathy. Supple, full range of motion without nuchal rigidity, or vertebral point tenderness. No Meningismus. Chest/axilla: Normal chest wall appearance and motion. Nontender with no deformity. No lesions are appreciated. Cardiovascular: Regular rate and rhythm with a normal S1 and S2. No gallops, murmurs, or rubs. Normal PMI, no JVD. No pulse deficits. Respiratory: Lungs have equal breath sounds bilaterally, clear to auscultation and percussion. No rales, rhonchi or wheezes noted. No increased work of breathing, no retractions or nasal flaring. Abdomen/GI: Soft, non-tender, with normal bowel sounds. No distension or tympany. No guarding or rebound. No evidence of tenderness throughout. Back: No spinal tenderness. No costovertebral tenderness. Full range of motion. Male : Normal genitalia with no discharge or lesions. Skin: Warm, dry with normal turgor. Normal color with no rashes, no lesions, and no evidence of cellulitis. MS/ Extremity: Pulses equal, no cyanosis. Neurovascular intact. Full, normal range of motion. Neuro: Awake and alert, GCS 15, oriented to person, place, time, and situation. Cranial nerves II-XII grossly intact. Motor strength 5/5 in all extremities. Sensory grossly intact. Cerebellar exam normal. Normal gait. Psych: Awake, alert, with orientation to person, place and time. Behavior, mood, and affect are within normal limits. Vital Signs: 11:21 BP 165 / 91; Pulse 80; Resp 16; Temp 97.8(TE); Pulse Ox 97% ; Weight 115.67 kg; Height ss 6 ft. 2 in. (187.96 cm); Pain 0/10; 12:55 BP 144 / 88; Pulse 68; Resp 17; Pulse Ox 99% on R/A; Pain 0/10; tw2 13:40 BP 164 / 90 Sitting; Pulse 70; Resp 17; Pulse Ox 99% on R/A; tw2 13:40 BP 168 / 89 Supine; Pulse 68; Resp 17; Pulse Ox 99% ; tw2 13:40 BP 161 / 89 Standing; Pulse 79; Resp 17; Pulse Ox 99% on R/A; tw2 11:21 Body Mass Index 32.74 (115.67 kg, 187.96 cm) ss 13:40 "i feel a little lightheaded now" tw2 NIH Stroke Scale Scores: 12:11 NIHSS Score: 0 katerina MDM: 11:26 Patient medically screened. katerina 12:13 Data reviewed: vital signs, nurses notes, lab test result(s), EKG, radiologic studies, katerina CT scan, plain films. Data interpreted: child monitor: rate is 80 beats/min, Pulse oximetry: on room air is 97 %. Test interpretation: by ED physician or midlevel provider: ECG, plain radiologic studies. Counseling: I had a detailed discussion with the patient and/or guardian regarding: the historical points, exam findings, and any diagnostic results supporting the discharge/admit diagnosis, lab results, radiology results, the need for outpatient follow up, for definitive care. 01/25 12:06 Order name: Basic Metabolic Panel; Complete Time: 13:29 [facility] 01/25 12:06 Order name: CBC with Diff; Complete Time: 13:02 [facility] 01/25 12:06 Order name: LFT's; Complete Time: 13:29 [facility] 01/25 12:06 Order name: Magnesium; Complete Time: 13:29 [facility] 01/25 12:06 Order name: NT PRO-BNP; Complete Time: 13:29 [facility] 01/25 12:06 Order name: Troponin (emerg Dept Use Only); Complete Time: 13:29 [facility] 01/25 12:06 Order name: XRAY Chest (1 view); Complete Time: 12:51 [facility] 01/25 12:06 Order name: EKG; Complete Time: 12:06 [facility] 01/25 12:06 Order name: Cardiac monitoring; Complete Time: 13:22 [facility] 01/25 12:06 Order name: CT Head Brain wo Cont; Complete Time: 12:51 [facility] 01/25 13:52 Order name: Urine Dipstick--Ancillary (enter results) 01/25 12:06 Order name: IV Saline Lock; Complete Time: 13:23 [facility] 01/25 12:06 Order name: Labs collected and sent; Complete Time: 13:23 [facility] 01/25 12:06 Order name: O2 Per Protocol; Complete Time: 13:23 [facility] 01/25 12:06 Order name: O2 Sat Monitoring; Complete Time: 13:23 [facility] 01/25 12:06 Order name: Urine Dipstick-Ancillary (obtain specimen); Complete Time: 13:55 [facility] 01/25 13:31 Order name: Orthostatics; Complete Time: 13:38 [facility] Administered Medications: 12:35 Drug: NS 0.9% 1000 ml Route: IV; Rate: 1 bolus; Site: right antecubital; tw2 13:30 Follow up: Response: No adverse reaction; IV Status: Completed infusion; IV Intake: tw2 1000ml 13:40 Drug: Aspirin 162 mg Route: PO; tw2 Disposition: 01/26/20 13:51 Discharged to Home. Impression: Dizziness and giddiness, Weakness, Heat exhaustion, unspecified. - Condition is Stable. - Discharge Instructions: Dizziness, Weakness, Fatigue, Weakness, Msty-[id number]-Ukgl, Aspirin and Your Heart, Dizziness, Eyid-yz-Vitc. - Medication Reconciliation Form, Thank You Letter, Antibiotic Education, Prescription Opioid Use form. - Follow up: A Manzano; When: 1 - 2 days; Reason: Recheck today's complaints, Re-evaluation by your physician. Follow up: Private Physician; When: 2 - 3 days; Reason: Recheck today's complaints, Continuance of care, Re-evaluation by your physician. - Problem is new. - Symptoms have improved. NIH Stroke Scale - NIH Stroke Score Date: 01/26/2020 Time: 12:11 Total Score = 0 1a. Level of Consciousness (LOC) - 0(Alert) 1b. Level of Consciousness (LOC) (Year \\T\\ Age) - 0(Both) 1c. LOC Commands (Open \\T\\ Closes Eyes/Java J2E[employer] Application Developer) - 0(Both) 2. Best Gaze (Lateral Gaze Paresis) - 0(Normal) 3. Visual Field Loss - 0(No visual loss) 4. Facial Palsy - 0(Normal) 5a. Left Arm: Motor (10-second hold) - 0(No drift) 5b. Right Arm: Motor (10-second hold) - 0(No drift) 6a. Left Leg: Motor (5-second hold - always test supine) - 0(No drift) 6b. Right Leg: Motor (5-second hold - always test supine) - 0(No drift) 7. Limb Ataxia (finger/nose \\T\\ heel/santos - test with eyes open) - 0(Absent) 8. Sensory Loss (pinprick arms/legs/face) - 0(Normal) 9. Best Language: Aphasia (description/naming/reading) - 0(No aphasia) 10. Dysarthria (speech clarity - read or repeat words) - 0(Normal) 11. Extinction and Inattention (visual/tactile/auditory/spatial/personal) - 0(No abnormality) Initials: [facility] Signatures: Dispatcher [employer] EDMS Pal Bunn MD MD cha Smirch, Shelby, RN RN Chelsy Moya RN RN tw2 Corrections: (The following items were deleted from the chart) 14:07 13:51 01/26/2020 13:51 Discharged to Home. Impression: Dizziness and giddiness; tw2 Weakness; Heat exhaustion, unspecified. Condition is Stable. Discharge Instructions: Dizziness, Weakness, Fatigue, Weakness, Mjvg-[id number], Aspirin and Your Heart, Dizziness, Gkde-bj-Onkg. Forms are Medication Reconciliation Form, Thank You Letter, Antibiotic Education, Prescription Opioid Use. Follow up: A Manzano; When: 1 - 2 days; Reason: Recheck today's complaints, Re-evaluation by your physician. Follow up: Private Physician; When: 2 - 3 days; Reason: Recheck today's complaints, Continuance of care, Re-evaluation by your physician. Problem is new. Symptoms have improved. katerina
--- NOTE | 2020-01-26 13:52 | ER ---
Nurse's Notes [facility] Name: Harriet Sanders Age: 59 yrs Sex: Male : 1960 Arrival Date: 01/26/2020 Time: 11:17 Bed 20 Private MD: Rosalia Lopez C Diagnosis: Dizziness and giddiness;Weakness;Heat exhaustion, unspecified Presentation: 01/25 11:21 Chief complaint: Patient states: "At the house working, then I got really dizzy and ss everything seemed like it started closing in on me, then it went away. I called Dr. Lopez and he told me just to come in and get checked out. I still feel just a little dizzy.". Coronavirus screen: Proceed with normal triage. Patient denies a cough. Patient denies shortness of breath or difficulty breathing. Patient denies measured and/or subjective temperature greater than 100.4F prior to today's visit. Patient denies travel on a cruise ship or to a country the [facility] currently lists as an affected area. Patient denies contact with known and/or suspected case of COVID-19. Ebola Screen: Patient denies exposure to infectious person. Patient denies travel to an Ebola-affected area in the 21 days before illness onset. Initial Sepsis Screen: Does the patient meet any 2 criteria? No. Patient's initial sepsis screen is negative. Does the patient have a suspected source of infection? No. Patient's initial sepsis screen is negative. Risk Assessment: Do you want to hurt yourself or someone else? Patient reports no desire to harm self or others. Onset of symptoms was January 26, 2020. 11:21 Method Of Arrival: Ambulatory ss 11:21 Acuity: WAQAS 3 ss Historical: - Allergies: 11:24 No Known Allergies; ss - PMHx: 11:24 GERD; Hypertension; ss - PSHx: 11:24 Knee surgery; ss - Immunization history:: Adult Immunizations up to date. - Social history:: Smoking status: Patient denies any tobacco usage or history of. - Family history:: not pertinent. Screenin:55 Abuse screen: Denies threats or abuse. Nutritional screening: No deficits noted. tw2 Tuberculosis screening: No symptoms or risk factors identified. Fall Risk None identified. Assessment: 12:56 Reassessment: Patient appears in no apparent distress at this time. No changes from tw2 previously documented assessment. Patient and/or family updated on plan of care and expected duration. Pain level reassessed. Patient is alert, oriented x 3, equal unlabored respirations, skin warm/dry/pink. 12:56 General: Appears in no apparent distress. well groomed, Behavior is calm, cooperative, tw2 appropriate for age. Pain: Denies pain. Neuro: Level of Consciousness is awake, alert, obeys commands, Oriented to person, place, time, situation. Neuro: Reports "i had an episode where i felt like i was going to black out but i did not, i really wasn't doing anything that got me hot or upset so dr. loepz said to come here". Cardiovascular: Heart tones S1 S2 Patient's skin is warm and dry. Respiratory: Airway is patent Respiratory effort is even, unlabored, Respiratory pattern is regular, symmetrical, Breath sounds are clear bilaterally. GI: No signs and/or symptoms were reported involving the gastrointestinal system. Abdomen is round non-distended, Bowel sounds present X 4 quads. : No signs and/or symptoms were reported regarding the genitourinary system. EENT: No signs and/or symptoms were reported regarding the EENT system. Derm: No signs and/or symptoms reported regarding the dermatologic system. Musculoskeletal: Range of motion: intact in all extremities. 13:57 Reassessment: Patient appears in no apparent distress at this time. No changes from tw2 previously documented assessment. Patient and/or family updated on plan of care and expected duration. Pain level reassessed. Patient is alert, oriented x 3, equal unlabored respirations, skin warm/dry/pink. Vital Signs: 11:21 BP 165 / 91; Pulse 80; Resp 16; Temp 97.8(TE); Pulse Ox 97% ; Weight 115.67 kg; Height ss 6 ft. 2 in. (187.96 cm); Pain 0/10; 12:55 BP 144 / 88; Pulse 68; Resp 17; Pulse Ox 99% on R/A; Pain 0/10; tw2 13:40 BP 164 / 90 Sitting; Pulse 70; Resp 17; Pulse Ox 99% on R/A; tw2 13:40 BP 168 / 89 Supine; Pulse 68; Resp 17; Pulse Ox 99% ; tw2 13:40 BP 161 / 89 Standing; Pulse 79; Resp 17; Pulse Ox 99% on R/A; tw2 11:21 Body Mass Index 32.74 (115.67 kg, 187.96 cm) ss 13:40 "i feel a little lightheaded now" tw2 NIH Stroke Scale Scores: 12:11 NIHSS Score: 0 [facility] ED Course: 11:17 Patient arrived in ED. mr 11:17 Rosalia Lopez MD is Private Physician. mr 11:23 Triage completed. ss 11:24 Arm band placed on right wrist. ss 11:26 Pal Bunn MD is Attending Physician. katerina 11:56 Chelsy Broderick RN is Primary Nurse. tw2 12:00 Bed in low position. tw2 12:19 CT Head Brain wo Cont In Process Unspecified. EDMS 12:30 wirer helper on. Pulse ox on. NIBP on. tw2 12:31 XRAY Chest (1 view) In Process Unspecified. EDMS 12:35 Inserted saline lock: 20 gauge in right antecubital area, using aseptic technique. tw2 Blood collected. 13:51 Rosalia Lopez MD is Referral Physician. katerina 14:07 No provider procedures requiring assistance completed. IV discontinued, intact, tw2 bleeding controlled, No redness/swelling at site. Pressure dressing applied. Administered Medications: 12:35 Drug: NS 0.9% 1000 ml Route: IV; Rate: 1 bolus; Site: right antecubital; tw2 13:30 Follow up: Response: No adverse reaction; IV Status: Completed infusion; IV Intake: tw2 1000ml 13:40 Drug: Aspirin 162 mg Route: PO; tw2 Intake: 13:30 IV: 1000ml; Total: 1000ml. tw2 Outcome: 13:51 Discharge ordered by . katerina 14:07 Patient left the ED. tw2 14:07 Discharged to home ambulatory. tw2 14:07 Condition: stable 14:07 Discharge instructions given to patient, Instructed on discharge instructions, follow up and referral plans. Demonstrated understanding of instructions, follow-up care. NIH Stroke Scale - NIH Stroke Score Date: 01/26/2020 Time: 12:11 Total Score = 0 1a. Level of Consciousness (LOC) - 0(Alert) 1b. Level of Consciousness (LOC) (Year \\T\\ Age) - 0(Both) 1c. LOC Commands (Open \\T\\ Closes Eyes/Command Center Analyst) - 0(Both) 2. Best Gaze (Lateral Gaze Paresis) - 0(Normal) 3. Visual Field Loss - 0(No visual loss) 4. Facial Palsy - 0(Normal) 5a. Left Arm: Motor (10-second hold) - 0(No drift) 5b. Right Arm: Motor (10-second hold) - 0(No drift) 6a. Left Leg: Motor (5-second hold - always test supine) - 0(No drift) 6b. Right Leg: Motor (5-second hold - always test supine) - 0(No drift) 7. Limb Ataxia (finger/nose \\T\\ heel/santos - test with eyes open) - 0(Absent) 8. Sensory Loss (pinprick arms/legs/face) - 0(Normal) 9. Best Language: Aphasia (description/naming/reading) - 0(No aphasia) 10. Dysarthria (speech clarity - read or repeat words) - 0(Normal) 11. Extinction and Inattention (visual/tactile/auditory/spatial/personal) - 0(No abnormality) Initials: katerina Signatures: Dispatcher [employer] Pal Pretty MD MD cha Rivera, Mary mr Ameena Faye, Chelsy Mary RN, RN RN tw2 Corrections: (The following items were deleted from the chart) 13:57 13:40 BP 168 / 89 Supine; Pulse 68bpm; Resp 17bpm; Pulse Ox 99%; tw2 tw2
[2020-01-26 13:57] LABS: Urine Blood NEGATIVE (NEG); Urine Glucose NEGATIVE (NEG); Urine Protein NEGATIVE (NEG); Urine Specific Gravity 1.025 (1.005-1.030); Urine pH 5.5 (5.0-7.0)
[2020-01-26 14:16] VITALS: TEMP 97.8
[2020-01-26 14:17] VITALS: O2SAT 99
[2020-01-26 14:24] VITALS: BP 161/89
--- NOTE | 2020-01-27 12:20 | EKG ---
Test Date: 2020-01-26 Test Time: 13:33:56 [place] Worker: HAILEY MEASUREMENT RESULTS: Intervals: Rate: 62 HI: 208 QRSD: 106 QT: 426 QTc: 432 [place]: P: 51 HI: 208 QRS: 12 T: 161 INTERPRETIVE STATEMENTS: Normal sinus rhythm ST & T wave abnormality, consider lateral ischemia Abnormal ECG Compared to ECG 02/21/2018 09:10:39 No significant changes Electronically Signed On 01-27-20 12:17:51 CDT by Erlin Angulo
== END 2020-01-26 14:07 | disposition home or self-care (01) ==
LOC: ER 11:13
DX: T67.9XXA Effect of heat and light, unspecified, initial encounter (principal); X30.XXXA Exposure to excessive natural heat, initial encounter; Y93.89 Activity, other specified; Y92.89 Other specified places as the place of occurrence of the external cause; I10 Essential (primary) hypertension
CPT/HCPCS: 93005; 85025; 80048; 36415; 83735; 80076; 81003; 84484; 83880; 70450; 71045; 96360; 99284; J7030

== ENCOUNTER 2022-11-07 16:50 | Emergency (ER) | payer OTHER ==
--- OUTSIDE RECORDS SUMMARY | 2022-11-07 16:54 | XMS REPORT | Continuity of Care Document ---
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 DILCIA 1.2.840.114 [id number] Univers 00:00:00 00:00:00 Only Unassigned, ORLIN 350.1.13.10 ity of [place] [facility] 4.2.7.2.686 [place]ao as [phone] [facility] [address] 2020-10-03 2020-10-03 Transition Yarelis Vazquez 1.2.840.114 [id number] Univers 00:00:00 00:00:00 of Care Aline Mendez 350.1.13.10 i ty of [place] [phone] [facility] [address] 2020-10-03 2020-10-03 Abstract James [facility] 1.2.840.114 [id number] Univers 00:00:00 00:00:00 , Jeremy SPECIALTY 350.1.13.10 [place] [phone] Hi dical VICTORY [address] [facility] 2020-09-27 2020-10-02 Hospital Sheyla Hassan 1.2.840.114 [id number] Univers 16:52:00 19:00:00 Encounter Alo Lara 350.1.13.10 ity of [facility] 4.2.7.2.686 [place] [phone] [facility] [address] [place] 2020-09-27 2020-09-27 Emergency X SINGER [facility] ERT [id number] Univers 13:03:00 16:05:00 SCOTTY ity of [facility] 2020-09-27 2020-09-27 Emergency Scotty Schulz [facility] 1.2.840. 114 [id number] Univers 13:03:00 16:05:00 Rose Purdy 350.1.13.1 0 ity of [place] 4.2.7.2.686 [place] [facility] [phone] [place] [id number] [place] 2020-04-19 2020-04-19 Laboratory Lab, Adc Fam Pob I [facility] 1.2. 840.114 [id number] Univers 16:32:42 16:52:42 Only Glenna Ingram 350.1.13.10 ity of [place] 4.2.7.2.686 [place] as Professio [phone] [address] Office [address] [facility] 2020-04-19 2020-04-19 Outpatient Deshaun INGRAM [facility] [id number] Univers 16:40:00 16:40:00 GLENNA diaztabby of [facility] 2020-04-19 2020-04-19 Letter Doctor DILCIA 1.2.840.114 [id number] Univers 00:00:00 00:00:00 (Out) Unassigned, ORLIN 350.1.13.10 ity of [place] [facility] 4.2.7.2.686 [place] as [phone] [address] 2020-04-05 2020-04-05 Outpatient Nav, HCAT[facility]G [id number] [facility] 11:00:00 11:00:00 [facility] Results This patient has no known results.
--- NOTE | 2022-11-07 19:08 | RAD REPORT ---
EXAM DESCRIPTION: US - Extremity Venous Uni Ltd - 11/07/2022 6:45 pm CLINICAL HISTORY: Pain COMPARISON: None. TECHNIQUE: Real-time sonographic evaluation of the left lower extremity deep venous system was perfo rmed. FINDINGS: Normal compressibility, flow augmentation, phasic flow and spontaneous flow is identified in the left lower extremity deep venous system. No intraluminal filling defects seen. IMPRESSION: No DVT in the left lower extremity.
--- NOTE | 2022-11-07 19:11 | EDPHYS ---
Physician Documentation [facility] Name: Harriet Sanders Age: 62 yrs Sex: Male : 1960 Arrival Date: 11/07/2022 Time: 16:55 Bed 20 Private MD: Rosalia Manzano C ED Physician Emmanuel Burton HPI: 11/07 18:08 This 62 yrs old Male presents to ER via Ambulatory with complaints of Leg Pain, r/o kb blood clot. 18:08 The patient presents with pain, that is acute. The complaints affect the left calf. kb Context: The problem was sustained at home, resulted from an unknown cause, the patient can fully bear weight, the patient is able to ambulate, Problem is a result from a previous injury: No. Onset: The symptoms/episode began/occurred yesterday. Modifying factors: The symptoms are alleviated by nothing. the symptoms are aggravated by nothing. Associated signs and symptoms: Pertinent positives: swelling. Treatment prior to arrival includes: nash wrap. Severity of symptoms: At their worst the symptoms were mild, in the emergency department the symptoms are unchanged. The patient has not experienced similar symptoms in the past. The patient has not recently seen a physician. Historical: - Allergies: 16:59 No Known Allergies; aa5 - PMHx: 16:59 GERD; Hypertension; aa5 - Social history:: Smoking status: unknown. ROS: 18:07 Constitutional: Negative for fever, chills, and weight loss. kb 18:07 MS/extremity: Positive for pain, of the left calf. 18:07 All other systems are negative. Exam: 18:07 Constitutional: This is a well developed, well nourished patient who is awake, alert, kb and in no acute distress. Head/Face: Normocephalic, atraumatic. ENT: Moist Mucous membranes Cardiovascular: Regular rate and rhythm with a normal S1 and S2. No gallops, murmurs, or rubs. No pulse deficits. Respiratory: Respirations even and unlabored. No increased work of breathing. Talking in full sentences Abdomen/GI: Soft, non-tender. No distention Skin: Warm, dry with normal turgor. Normal color. Neuro: Awake and alert, GCS 15, oriented to person, place, time, and situation. Moves all extremities. Normal gait. Psych: Awake, alert, with orientation to person, place and time. Behavior, mood, and affect are within normal limits. 18:07 Musculoskeletal/extremity: Extremities: grossly normal except: noted in the left calf: pain, swelling, ROM: intact in all extremities, Circulation is intact in all extremities. Sensation intact. Weight bearing: able to fully bear weight. Vital Signs: 16:59 BP 150 / 94; Pulse 78; Resp 18 S; Temp 98.0(TE); Pulse Ox 96% on R/A; Weight 113.4 kg aa5 (R); Height 6 ft. 2 in. (187.96 cm) (R); 16:59 Body Mass Index 32.10 (113.40 kg, 187.96 cm) aa5 MDM: 16:56 Patient medically screened. kb 18:07 Differential diagnosis: DVT, cellulitis, strain. Data reviewed: vital signs, nurses kb notes. 18:40 ED course: Patient is a 62-year-old male who presents with left calf pain that started kb yesterday. Denies injury. Spoke to Dr. Manzano who recommended he come to the ER for ultrasound to rule out DVT. Slight swelling to left calf, no redness or tenderness.. 19:09 Counseling: I had a detailed discussion with the patient and/or guardian regarding: the kb historical points, exam findings, and any diagnostic results supporting the discharge/admit diagnosis, radiology results, the need for outpatient follow up, a family practitioner, to return to the emergency department if symptoms worsen or persist or if there are any questions or concerns that arise at home. 11/07 17:02 Order name: Extremity Venous Unilateral Ltd kb 11/07 19:09 Order name: ; Complete Time: 19:09 EDMS Administered Medications: No medications were administered Disposition Summary: 11/07/22 19:10 Discharge Ordered Location: Home kb Condition: Stable kb Diagnosis - Pain in left lower leg kb Followup: kb - With: Emergency Department - When: As needed - Reason: Worsening of condition Followup: kb - With: Private Physician - When: 2 - 3 days - Reason: Recheck today's complaints, Continuance of care, Re-evaluation by your physician Discharge Instructions: - Discharge Summary Sheet kb - Musculoskeletal Pain kb Forms: - Medication Reconciliation Form kb - Thank You Letter kb - Antibiotic Education kb - Prescription Opioid Use kb Prescriptions: - orphenadrine citrate 100 mg Oral Tablet Sustained Release - take 1 tablet by ORAL route 2 times per day As needed; 20 tablet; Refills: 0, kb Product Selection Permitted Addendum: 11/08/2022 20:20 Co-signature as Attending Physician, Emmanuel Burton MD I reviewed the patient's care r t provided by the Advanced Practice Provider and agree with the diagnosis and treatment plan. Signatures: Dispatcher [employer] Leena Merida, BRIQUETTE MACHINE OPERATOR-C BRIQUETTE MACHINE OPERATOR-Nga Huerta, RN RN aa5 Pily Lance RN RN kr3 Emmanuel Burton MD MD rt
--- NOTE | 2022-11-07 19:11 | ER ---
Nurse's Notes [facility] Name: Harriet Sanders Age: 62 yrs Sex: Male : 1960 Arrival Date: 11/07/2022 Time: 16:55 Bed 20 Private MD: Rosalia Manzano C Diagnosis: Pain in left lower leg Presentation: 11/07 16:59 Chief complaint: Patient states: left calf pain that began yesterday, denies injury, aa5 denies swelling. Reports sent here by Dr. Manzano. Coronavirus screen: At this time, the client does not indicate any symptoms associated with coronavirus-19. Ebola Screen: Patient denies travel to an Ebola-affected area in the 21 days before illness onset. Initial Sepsis Screen: Does the patient meet any 2 criteria? No. Patient's initial sepsis screen is negative. Does the patient have a suspected source of infection? No. Patient's initial sepsis screen is negative. Risk Assessment: Do you want to hurt yourself or someone else? Patient reports no desire to harm self or others. Onset of symptoms was October 2022. 16:59 Acuity: WAQAS 3 aa5 16:59 Method Of Arrival: Ambulatory aa5 Triage Assessment: 15:00 General: Appears in no apparent distress. uncomfortable, Behavior is calm, cooperative, kr3 appropriate for age. Historical: - Allergies: 16:59 No Known Allergies; aa5 - PMHx: 16:59 GERD; Hypertension; aa5 - Social history:: Smoking status: unknown. Screenin:25 [facility] ED Fall Risk Assessment (Adult) History of falling in the last 3 months, kr3 including since admission No falls in past 3 months (0 pts) Confusion or Disorientation No (0 pts) Intoxicated or Sedated No (0 pts) Impaired Gait No (0 pts) Mobility Assist Device Used No (0 pt) Altered Elimination No (0 pt) Score/Fall Risk Level 0 - 2 = Low Risk Oriented to surroundings, Maintained a safe environment, Educated pt \T\ family on fall prevention, incl call for assistance when getting out of bed, Assessed \T\ reinforced patient's understanding of fall precautions, Hourly rounding (assess needs \T\ fall precautionary measures) done. Abuse screen: Denies threats or abuse. Nutritional screening: No deficits noted. Tuberculosis screening: No symptoms or risk factors identified. Vital Signs: 16:59 BP 150 / 94; Pulse 78; Resp 18 S; Temp 98.0(TE); Pulse Ox 96% on R/A; Weight 113.4 kg aa5 (R); Height 6 ft. 2 in. (187.96 cm) (R); 16:59 Body Mass Index 32.10 (113.40 kg, 187.96 cm) aa5 ED Course: 16:00 No provider procedures requiring assistance completed. kr3 16:55 Patient arrived in ED. am2 16:55 Rosalia Manzano MD is Private Physician. am2 16:56 [facility]C [facility] kb 16:56 Emmanuel Burton MD is Attending Physician. kb 16:59 Arm band placed on. aa5 17:00 Triage completed. aa5 17:00 Placed in gown. Bed in low position. Call light in reach. Side rails up X 1. kr3 19:04 Pily Lance, RN is Primary Nurse. kr3 Administered Medications: No medications were administered Medication: 21:28 VIS not applicable for this client. kr3 Outcome: 19:10 Discharge ordered by . kb 19:24 Patient left the ED. kr3 Signatures: Leena Raymond FNP-C BELT POLISHER-Tachob Nga Mendoza, RN RN aa5 Rebecca Harrington am2 Pily Lance, RN RN kr3 Corrections: (The following items were deleted from the chart) 21:27 21:26 Abuse screen: Denies threats or abuse. kr3 kr3 21:27 21:26 Nutritional screening: No deficits noted. kr3 kr3 21:27 21:26 Tuberculosis screening: No symptoms or risk factors identified. kr3 kr3 21:27 21:26 [facility] ED Fall Risk Assessment (Adult) History of falling in the last 3 months, kr3 including since admission No falls in past 3 months (0 pts) Confusion or Disorientation No (0 pts) Intoxicated or Sedated No (0 pts) Impaired Gait No (0 pts) Mobility Assist Device Used No (0 pt) Altered Elimination No (0 pt) Score/Fall Risk Level 0 - 2 = Low Risk Oriented to surroundings, Maintained a safe environment, Educated pt \T\ family on fall prevention, incl call for assistance when getting out of bed, Assessed \T\ reinforced patient's understanding of fall precautions, Hourly rounding (assess needs \T\ fall precautionary measures) done, kr3
[2022-11-07 19:28] VITALS: BP 150/94; TEMP 98; O2SAT 96
== END 2022-11-07 19:24 | disposition home or self-care (01) ==
LOC: ER 16:50
DX: M79.662 Pain in left lower leg (principal); I10 Essential (primary) hypertension
CPT/HCPCS: 93971; 99281

== ENCOUNTER 2023-03-02 13:34 | Emergency (ER) | payer OTHER ==
--- OUTSIDE RECORDS SUMMARY | 2023-03-02 13:41 | XMS REPORT | Continuity of Care Document ---
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 449066497] Future Scheduled 2023-03-02 [facility] Test 10:52:47 malignant neoplasm of colon (procedure) [code = 101215017] Future Scheduled 2023-03-02 [facility] Test 10:52:47 malignant neoplasm of colon (procedure) [code = 477262372] Future Scheduled 2023-03-02 SHINGLES VACCINES ([facility] 10:52:47 of 2) [code = SHINGLES VACCINES (1 of 2)] Future Scheduled 2023-03-02 COVID-19 VACCINE (2 - [facility] Test 10:52:47 Booster for Yi series) [code = COVID-19 VACCINE (2 - Booster for Yi series)] Future Scheduled 2023-03-02 INFLUENZA VACCINE [facility] Test 10:52:47 [code = INFLUENZA VACCINE] Encounters Start End Encounter Admission Attending Care Care Encounter Source Date/Time Date/Time Type Type Clinicians Facility Department ID 2021-07-21 Outpatient ABDULKADIR HERNANDEZ FARSHAD [id number] Univers 14:52:37 [facility] 2021-07-21 Outpatient ABDULKADIR HERNANDEZ FARSHAD [id number] Univers 13:20:28 [facility] 2021-07-19 Emergency [facility] [id number] Univers 16:03:31 [facility] 2023-03-02 2023-03-02 Travel 1.2.840.1 1.2.163.094 2234 [id number] Methodi 00:00:00 00:00:[address] 3.430.2.7 0.2.7.3.698 Ho spita .3.147068 084.8 l .8 2023-02-23 2023-02-23 Travel 1.2.840.1 1.2.755.146 3805 [id number] Methodi 00:00:00 00:00:[address] 3.430.2.7 0.2.7.3.698 Ho spita .3.554878 084.8 l .8 2023-02-22 2023-02-22 Telephone Marsha Rosales 1.2.840.1 [id number] 2 [id number] Methodi 00:00:00 00:00:[address] 3.430.2.7 Hospit a .3.577689 l .8 2023-02-12 2023-02-18 Hospital Marsha Rosales 1.2.840.1 [id number] 21 [id number] Methodi 05:08:00 13:04:00 Encounter Issa 01513.1.[address] 3.430.2.7 Hospit a .3.024750 l .8 2023-02-12 2023-02-18 Inpatient [facility] [id number] Rupert 00:00:00 00:00:[address] 2023-02-12 2023-02-12 Anesthesia Marvin Bergman 1.2.840.1 [id number] Methodi 07:23:00 17:57:00 Rebecca Aggarwal50.1.[address] 3.430.2.7 Hospit a .3.629316 l .8 2023-02-12 2023-02-12 Surgery Marsha Rosales 1.2.840.1 [id number] 905 [id number] Methodi 07:30:00 14:05:[address] 3.430.2.7 Hospit a .3.487579 l .8 2023-02-12 2023-02-12 Travel 1.2.840.1 1.2.908.224 4845 [id number] Methodi 00:00:00 00:00:[address] 3.430.2.7 0.2.7.3.698 Ho spita .3.361726 084.8 l .8 2023-02-03 2023-02-03 [facility] Marsha Rosales 1.2.840.1 [id number] 21 [id number] Methodi 13:32:05 23:59:00 Encounter Issa 70562.1.[address] 3.430.2.7 Hospit a .3.128570 l .8 2023-02-03 2023-02-03 [facility] Marsha Rosales 1.2.840.1 [id number] 21 [id number] Methodi 10:07:12 13:31:00 Encounter Issa 66338.1.[address] 3.430.2.7 Hospit a .3.717834 l .8 2023-02-03 2023-02-03 Pre-Admiss Marsha Rosales Issa 1.2.840.1 10 [id number] Methodi 09:30:00 10:30:00 Rebecca Gardiner 74558.1.[address] Testing 3.430.2.7 Hospit a .3.717907 l .8 2023-02-03 2023-02-03 Outpatient MARSHA ROSALES [facility] 2100 [id number] Rupert 00:00:00 00:00:[address] 2023-02-03 2023-02-03 Outpatient MARSHA ROSALES [facility] 2100 [id number] Rupert 00:00:00 00:00:[address] 2023-02-03 2023-02-03 Outpatient MARSHA ROSALES [facility] 2100 [id number] Rupert 00:00:00 00:00:[address] 2023-02-03 2023-02-03 Outpatient MARSHA ROSALES [facility] 2100 [id number] Rupert 00:00:00 00:00:[address] 2023-02-03 2023-02-03 Outpatient MARSHA ROSALES [facility] 2100 [id number] Rupert 00:00:00 00:00:[address] 2023-02-03 2023-02-03 Travel 1.2.840.1 1.2.074.761 7904 [id number] Methodi 00:00:00 00:00:[address] 3.430.2.7 0.2.7.3.698 Ho spita .3.109331 084.8 l .8 2023-02-03 2023-02-03 Outpatient MARSHA ROSALES [facility] 2100 [id number] Rupert 00:00:00 00:00:[address] 2023-02-01 2023-02-01 Prep for Yeh, Coreen 1.2.840.1 [id number] 2099 [id number] Methodi 00:00:00 00:00:00 Surgery Ling 83328.1.[address] 3.430.2.7 Hospit a .3.572711 l .8 2023-02-01 2023-02-01 Telephone [place], 1.2.840.1 [id number] 2099 [id number] Methodi 00:00:00 00:00:[address] 3.430.2.7 Hospit a .3.332769 l .8 2023-01-29 2023-01-29 Telephone [place], 1.2.840.1 [id number] 2099 [id number] Methodi 00:00:00 00:00:[address] 3.430.2.7 Hospit a .3.115076 l .8 2023-01-28 2023-01-28 Documentat [place], 1.2.840.1 [id number] 924 [id number] Methodi 00:00:00 00:00:00 ion Charlene 38354.1.[address] 3.430.2.7 Hospit a .3.192074 l .8 2023-01-28 2023-01-28 Orders [place], 1.2.840.1 [id number] 9633 Methodi 00:00:00 00:00:00 Only Charlene 60567.1.[address] 3.430.2.7 Hospit a .3.554150 l .8 2023-01-28 2023-01-28 Orders [place], 1.2.840.1 [id number] 124538 4516 Methodi 00:00:00 00:00:00 Only Charlene 66937.1.[address] 3.430.2.7 Hospit a .3.677965 l .8 2023-01-27 2023-01-27 Office Marsha Rosales 1.2.840.1 [id number] 030 [id number] Methodi 08:30:00 10:00:49 Visit Issa 98556.1.[address] 3.430.2.7 Hospit a .3.249639 l .8 2023-01-27 2023-01-27 Outpatient MARSHA ROSALES [facility] 2100 [id number] Rupert 00:00:00 00:00:[address] 2023-01-27 2023-01-27 Telephone [place], 1.2.840.1 [id number] 2099 [id number] Methodi 00:00:00 00:00:[address] 3.430.2.7 Hospit a .3.937110 l .8 2023-01-27 2023-01-27 Orders [place], 1.2.840.1 [id number] 4969 Methodi 00:00:00 00:00:00 Only Charlene 59156.1.[address] 3.430.2.7 Hospit a .3.742899 l .8 2023-01-27 2023-01-27 Travel 1.2.840.1 1.2.903.897 3737 744069 Methodi 00:00:00 00:00:[address] 3.430.2.7 0.2.7.3.698 Ho spita .3.734730 084.8 l .8 2023-01-26 2023-01-26 Refill [facility], 1.2.840.1 [id number] 2100 [id number] Methodi 00:00:00 00:00:[address] [place] 3.430.2.7 Hospit a .3.457290 l .8 2023-01-25 2023-01-25 Telephone [place], 1.2.840.1 [id number] 2099 [id number] Methodi 00:00:00 00:00:[address] 3.430.2.7 Hospit a .3.179132 l .8 2023-01-22 2023-01-22 Telephone [place], 1.2.840.1 [id number] 2099 [id number] Methodi 00:00:00 00:00:[address] 3.430.2.7 Hospit a .3.283805 l .8 2023-01-20 2023-01-20 [facility], 1.2.840.1 [id number] 90013 80913 Methodi 10:52:00 15:55:00 Encounter Samar 62602.1.[address] [place] 3.430.2.7 Hospit a .3.456146 l .8 2023-01-20 2023-01-20 Surgery [facility], 1.2.840.1 [id number] 7712 Methodi 12:40:00 14:20:[address] [place] 3.430.2.7 Hospit a .3.024908 l .8 2023-01-20 2023-01-20 Office [facility], 1.2.840.1 [id number] [id number] 0318 Methodi 13:40:00 14:10:00 Visit Samar 55355.1.[address] [place] 3.430.2.7 Hospit a .3.645391 l .8 2023-01-20 2023-01-20 [facility] 382 [id number] 555 Rupert 00:00:00 00:00:00 ANA [address] 2023-01-20 2023-01-20 Outpatient [facility] [id number] Rupert 00:00:00 00:00:00 ANA [address] 2023-01-20 2023-01-20 Travel 1.2.840.1 1.2.998.875 0693 777964 Methodi 00:00:00 00:00:[address] 3.430.2.7 0.2.7.3.698 Ho spita .3.017399 084.8 l .8 2023-01-19 2023-01-19 Documentat Provider, 1.2.840.1 [id number] 2 [id number] Methodi 00:00:00 00:00:00 ion Unknown 01024.1.[address] 3.430.2.7 Hospit a .3.092622 l .8 2023-01-19 2023-01-19 Documentat Provider, 1.2.840.1 [id number] 2 [id number] Methodi 00:00:00 00:00:00 ion Unknown 34215.1.[address] 3.430.2.7 Hospit a .3.367289 l .8 2023-01-14 2023-01-18 Office [facility], 1.2.840.1 [id number] 2100 [id number] Methodi 15:00:00 10:19:29 Visit Ana 91072.1.[address] [place] 3.430.2.7 Hospit a .3.780732 l .8 2023-01-18 2023-01-18 Travel 1.2.840.1 1.2.145.897 9029 010593 Methodi 00:00:00 00:00:[address] 3.430.2.7 0.2.7.3.698 Ho spita .3.051217 084.8 l .8 2023-01-14 2023-01-18 Outpatient [facility] [id number] Rupert 00:00:00 00:00:00 ANA [address] 2023-01-12 2023-01-12 Travel 1.2.840.1 1.2.053.811 8870 297028 Methodi 00:00:00 00:00:[address] 3.430.2.7 0.2.7.3.698 Ho spita .3.403737 084.8 l .8 2023-01-07 2023-01-07 [facility], 1.2.840.1 [id number] 61927 94209 Methodi 15:01:19 23:59:00 Encounter Samar 23844.1.[address] [place] 3.430.2.7 Hospit a .3.294576 l .8 2023-01-07 2023-01-07 [facility], 1.2.840.1 [id number] 06954 Methodi 13:35:38 15:00:00 Encounter Preetar 49822.1.1 265 [facility] 3.430.2.7 Hospit a .3.307096 l .8 2023-01-07 2023-01-07 Outpatient [facility] [id number] 092 Rupert 00:00:00 00:00:00 SAMAR [address] 2023-01-07 2023-01-07 [facility] [id number] Rupert 00:00:00 00:00:00 SAMAR [address] 2023-01-06 2023-01-06 Travel 1.2.840.1 1.2.427.333 6974 036358 Methodi 00:00:00 00:00:[address] 3.430.2.7 0.2.7.3.698 Ho spita .3.809454 084.8 l .8 2022-12-29 2022-12-29 Travel 1.2.840.1 1.2.670.532 8350 780122 Methodi 00:00:00 00:00:[address] 3.430.2.7 0.2.7.3.698 Ho spita .3.946208 084.8 l .8 2022-12-29 2022-12-29 Transcribe [facility], 1.2.840.1 [id number] 547 [id number] Methodi 00:00:00 00:00:00 Orders Ana 10313.1.[address] [place] 3.430.2.7 Hospit a .3.281529 l .8 2022-12-21 2022-12-21 Office Vincent, 1.2.840.1 [id number] 2099 [id number] Methodi 12:35:00 12:35:00 Visit Ana 70413.1.[address] [place] 3.430.2.7 Hospit a .3.712387 l .8 2022-12-21 2022-12-21 Outpatient [facility] [id number] Rupert 00:00:00 00:00:[address] PREETAR [address] 2022-12-21 2022-12-21 Travel 1.2.840.1 1.2.625.439 1778 645235 Methodi 00:00:00 00:00:[address] 3.430.2.7 0.2.7.3.698 Ho spita .3.641991 084.8 l .8 2022-12-11 2022-12-11 Outpatient [facility] [id number] Rupert 00:00:00 00:00:[address] 2022-12-11 2022-12-11 Travel 1.2.840.1 1.2.040.055 8646 473235 Methodi 00:00:00 00:00:[address] 3.430.2.7 0.2.7.3.698 Ho spita .3.441972 084.8 l .8 2022-12-08 2022-12-08 Travel 1.2.840.1 1.2.488.941 3278 887546 Methodi 00:00:00 00:00:[address] 3.430.2.7 0.2.7.3.698 Ho spita .3.098866 084.8 l .8 2022-12-04 2022-12-04 Travel 1.2.840.1 1.2.508.790 4015 055858 Methodi 00:00:00 00:00:[address] 3.430.2.7 0.2.7.3.698 Ho spita .3.481527 084.8 l .8 2022-12-03 2022-12-03 Orders [facility], 1.2.840.1 2100 [id number] Methodi 00:00:00 00:00:00 Only Ana 39450.1.[address] [place] 3.430.2.7 Hospit a .3.952660 l .8 2022-11-26 2022-11-26 Office Vincent, 1.2.840.1 [id number] Methodi 14:15:00 15:13:24 Visit Ana 22704.1.[address] [facility] 3.430.2.7 Hospit a .3.355037 l .8 2022-11-26 2022-11-26 Outpatient [facility] [id number] Rupert 00:00:00 00:00:[address] PRE[address] 2022-11-26 2022-11-26 Outpatient [facility] [id number] 915 Rupert 00:00:00 00:00:[address] 2022-11-26 2022-11-26 Travel 1.2.840.1 1.2.274.996 7473 796498 Methodi 00:00:00 00:00:[address] 3.430.2.7 0.2.7.3.698 Ho spita .3.638173 084.8 l .8 2022-11-19 2022-11-19 Travel 1.2.840.1 1.2.332.436 5268 402372 Methodi 00:00:00 00:00:[address] 3.430.2.7 0.2.7.3.698 Ho spita .3.072015 084.8 l .8 2022-11-16 2022-11-16 Travel 1.2.840.1 1.2.238.834 3481 924588 Methodi 00:00:00 00:00:[address] 3.430.2.7 0.2.7.3.698 Ho spita .3.924726 084.8 l .8 2022-10-29 2022-10-29 Travel 1.2.840.1 1.2.734.734 9509 035849 Methodi 00:00:00 00:00:[address] 3.430.2.7 0.2.7.3.698 Ho spita .3.249209 084.8 l .8 2021-09-26 2021-09-26 Outpatient R PEDRO [facility] 813 [id number] Univers 10:30:00 10:30:00 RAMBO schaeffer [facility] 2021-09-19 2021-09-19 [facility] 1.2.840.114 9 [id number] Univers 09:52:22 23:59:00 Encounter Rambo Ramírez SPECIALTY 350.1.13.10 ity of CARE 4.2.7.2.686 [facility] AT [id number] Ca nuzhat MARCUM 809 [facility] 2021-09-19 2021-09-19 Outpatient Deshaun VASQUEZ [facility] 082 [id number] Univers 09:52:22 23:59:00 RAMBO schaeffer [facility] 2021-09-19 2021-09-19 [facility] [id number] [id number] Univers 09:50:00 10:11:07 RAMBO schaeffer [facility] 2021-09-19 2021-09-19 [facility] 1.2.840.114 [id number] Univers 09:50:00 10:11:07 Visit Rambo Ramírez SPECIALTY 350.1.13.10 ity of CARE 4.2.7.2.686 [facility] CENTER AT [phone] Ca nuzhat MARCUM 198 [facility] 2021-05-08 2021-05-08 Hospital Giuseppe, [facility] 1.2.840.114 [id number] Univers 06:37:00 10:40:00 Encounter Bandar Rios 350.1.13.10 [place] [phone] [facility] [address] Branch 2021-05-08 2021-05-08 Anesthesia Nadia Bui [facility] 1.2.840 .114 [id number] Univers 07:43:00 09:21:00 Event Rosi Deric Gabriel 350.1.13.10 [place] [id number] [facility] [address] [place] 2021-05-08 2021-05-08 Surgery Giuseppe [facility] 1.2.689.751 0269 6123 Univers 07:30:00 09:19:00 Bandar Rios 350.1.13.10 i [place] [id number] [facility] 020 Branch 2021-05-07 2021-05-07 Laboratory Only, Adc Test [facility] 1.2.840. 114 [id number] Univers 11:31:58 11:46:58 Only Issa Lindquist 350.1.13.10 [place] [phone] [facility] 353 Branch 2021-05-07 2021-05-07 Outpatient R [facility] [id number] Univers 10:15:00 10:15:00 ity of [facility] 2021-05-07 2021-05-07 Orders Doctor DILCIA 1.2.840.114 [id number] Univers 00:00:00 00:00:00 Only UnassignedORLIN 350.1.13.10 ity of [place] [facility] 4.2.7.2.686 Chao as [phone] [facility] 009 Branch 2021-04-30 2021-04-30 Chlorinator Srinath, Adc Lab Main [facility] 1.2.8 40.114 [id number] Univers 08:46:44 09:01:44 Visit Bandar Weinberg 350.1.13.10 ity [facility] 4.2.[place] [facility] [phone] Ca nuzhat dickerson 353 [facility] 2021-04-30 2021-04-30 [facility] 1.2.840.114 [id number] Univers 08:45:00 08:47:00 Encounter Bandar Rios 350.1.13.10 ity [facility] 4.2.[place].2.686 [place] [phone] [facility] 807 [place] 2021-04-30 2021-04-30 Outpatient Deshaun WEINBERG [facility] [id number] Univers 08:15:00 08:15:00 BANDAR schaeffer [facility] 2021-04-24 2021-04-24 Outpatient Deshaun WEINBERG [facility] [id number] Univers 00:00:00 00:00:00 [facility] 2021-04-15 2021-04-15 Outpatient MELIZA JAY [facility] [id number] Univers 10:10:00 10:10:00 [facility] 2021-03-28 2021-03-28 [facility] 1.2.840.114 [id number] Univers 10:21:13 23:59:00 Encounter Rambo Ramírez SPECIALTY [id number] [id number] [phone] Ca nuzhat MARCUM 809 [facility] 2021-03-28 2021-03-28 [facility] 1.2.840.114 [id number] Univers 10:16:26 10:45:21 Visit Rambo Ramírez SPECIALTY [id number] [id number] [phone] Ca nuzhat MARCUM 198 [facility] 2021-03-28 2021-03-28 [id number] Univers 10:30:00 10:30:00 RAMBO [facility] 2021-03-27 2021-03-27 [facility] 1.2.840.114 [id number] Univers 00:00:00 00:00:00 Management Julia Rios [id number] [id number] [phone] Ca dical nal [address] [facility] 2021-03-20 2021-03-20 Ancillary Hallie Lofton [facility] 1.2.840.1 14 [id number] Univers 08:54:40 09:39:45 Visit Marvin Juarez [id number] [id number] [phone] Ca dical nal 179 [facility] 2021-03-20 2021-03-20 Outpatient R [facility] [id number] Univers 09:00:00 09:00:00 ity of [facility] 2021-03-18 2021-03-18 Ancillary Hallie Lofton [facility] 1.2.840.1 [id number] Univers 13:55:33 14:35:33 Visit Marvin Juarez [id number] [id number] [phone] Ca dical nal 179 [facility] 2021-03-11 2021-03-11 Ancillary Julia Malave [facility] 1.2.840. 114 [id number] Univers 15:41:13 16:22:30 Visit Marvin Juarez [id number] [id number] [phone] Ca dical nal [address] [facility] 2021-03-04 2021-03-04 Ancillary Julia Malave [facility] 1.2.840. 114 [id number] Univers 15:08:45 16:11:22 Visit Marvin Juarez [id number] [id number] [phone] Ca dical nal [address] [facility] 2021-02-27 2021-02-27 Ancillary Julia Malave [facility] 1.2.840. 114 [id number] Univers 15:44:25 16:49:59 Visit JuarezMarvin Jayant Rios [id number] [id number] [phone] Ca dical nal [address] [facility] 2021-02-25 2021-02-25 Ancillary Graciela Valdovinos [facility] 1.2.840. 114 [id number] [facility] 14:52:54 15:33:59 Visit LarryGildajoey Rios [id number] [id number] [phone] Ca dical nal [address] [facility] 2021-02-18 2021-02-18 Ancillary Julia Malave [facility] 1.2.840. 114 [id number] [facility] 16:30:56 17:10:56 Visit Marvin Juarez [id number] [id number] [phone] Ca dical nal [address] [facility] 2021-02-18 2021-02-18 Outpatient R LARRY [facility] [id number] Univers 16:40:00 16:40:00 MARVIN ity of [facility] 2021-02-10 2021-02-10 Ancillary Julia Malave [facility] 1.2.840. 114 [id number] [facility] 15:22:35 16:02:42 Visit Marvin Juarez 350.1.13.10 [phone] Ca dical nal [address] [facility] 2021-02-06 2021-02-06 Ancillary Julia Malave [facility] 1.2.840. 114 [id number] Univers 15:12:27 15:59:12 Visit Marvin Juarez 350.1.13.10 [place] of [place] [phone] Ca dical nal [address] [facility] 2021-02-04 2021-02-04 Ancillary Neli Mistry [facility] 1.2.840 .114 [id number] Univers 15:11:49 16:50:21 Visit Larry Marvin Rios 350.1.13.10 [place] of [place] [phone] Ca dical nal [address] Building 2021-01-28 2021-01-28 Ancillary Stevie Mistry [facility] 1.2.840. 114 [id number] Univers 15:25:11 16:05:11 Visit JuarezGildajoey Rios 350.1.13.10 it[place] of [place] [phone] Ca dical nal [address] Building 2021-01-23 2021-01-23 Ancillary Neli Mistry [facility] 1.2.840 .114 [id number] Univers 14:52:06 15:32:06 Visit Marvin Juarez 350.1.13.10 [place] of [place] [phone] Ca dical nal [address] [facility] 2021-01-21 2021-01-21 Ancillary Neli Mistry [facility] 1.2.840 .114 [id number] Univers 14:52:06 15:46:15 Visit Larry Marvin Rios 350.1.13.10 [place] of [place] [phone] Ca dical nal [address] [facility] 2021-01-21 2021-01-21 Outpatient [facility] [id number] Univers 15:00:00 15:00:00 ity of [facility] 2021-01-16 2021-01-16 Ancillary Stevie Mistry [facility] 1.2.840. 114 [id number] Univers 16:16:54 17:03:51 Visit Marvin Juarez 350.1.13.10 it[place] of [place] [phone] Ca dical nal [address] [facility] 2021-01-10 2021-01-10 [facility] Meliza Fuentes [facility] 1.2.840.114 [id number] [facility] 14:09:37 23:59:00 Encounter SPECIALTY 350.1.13.10 it[place] [phone] Ca dical VICTORY 809 [facility] 2021-01-10 2021-01-10 Office Meliza Fuentes [facility] 1.2.856.750 [id number] [facility] 13:39:28 14:52:45 Visit SPECIALTY 350.1.13.10 it[place] [phone] Ca dicmckenzie VICTORY 198 [facility] 2021-01-10 2021-01-10 Outpatient R MELIZA FUENTES [facility] [id number] [facility] 14:00:00 14:00:00 ity of [facility] 2021-01-09 2021-01-09 Ancillary Neli Mistry [facility] 1.2.840 .114 [id number] [facility] 14:47:50 15:27:50 Visit Marvin Juarez 350.1.13.10 it[place] of [place] [phone] Ca dical nal 179 [facility] 2021-01-07 2021-01-07 Ancillary Neli Mistry [facility] 1.2.840 .114 [id number] [facility] 09:49:23 10:29:23 Visit Marvin Juarez 350.1.13.10 it[place] of [place] [phone] Ca dical nal 179 [facility] 2021-01-02 2021-01-02 Ancillary Neli Msitry [facility] 1.2.840 .114 [id number] [facility] 15:22:16 16:02:16 Visit Marvin Juarez 350.1.13.10 ity of [place] [phone] Ca dical nal 179 [facility] 2020-12-27 2020-12-27 [facility] Pedro [facility] 1.2.840.114 [id number] [facility] 10:36:34 23:59:00 Encounter Rambo Ramírez SPECIALTY 350.1.13.10 it[place] [phone] Ca nuzhat MARCUM 809 [facility] 2020-12-27 2020-12-27 Office Pedro [facility] 1.2.840.114 [id number] Univers 10:16:57 10:57:43 Visit Rambo Ramírez SPECIALTY 350.1.13.10 [place] [phone] Ca nuzhat MARCUM 198 [facility] 2020-12-27 2020-12-27 Outpatient R PEDRO [facility] [id number] Univers 10:30:00 10:30:00 RAMBO schaeffer [facility] 2020-12-25 2020-12-25 Ancillary Stevie Mistry [facility] 1.2.840. 114 [id number] Univers 15:44:43 16:24:43 Visit Marvin Juarez 350.1.13.10 it[place] of [place] [phone] Ca dical nal 179 [facility] 2020-12-19 2020-12-19 Ancillary MalaveJulia hayward Jannie [facility] 1.2.840. 114 [id number] Univers 14:57:26 16:05:25 Visit Marvin Juarez 350.1.13.10 it[place] of [place] [phone] Ca dical nal 179 [facility] 2020-12-19 2020-12-19 Outpatient R LARRY [facility] [id number] Univers 15:00:00 15:00:00 MARVIN schaeffer [facility] 2020-12-07 2020-12-07 [facility] 1.2.840.114 [id number] Univers 00:00:00 00:00:00 Rambo Ramírez SPECIALTY 350.1.13.10 [place] [phone] Ca nuzhat MARCUM 198 [facility] 2020-11-26 2020-11-26 Patient Live [facility] 1.2.840.114 [id number] Univers 00:00:00 00:00:00 Outreach Collin PRIMARY 350.1.13.10 i agustin rosario Bonifacio [facility] [place]2.[place].2.[place] [facility] [phone] Ca nuzhat [address] [place] [address] 2020-11-22 2020-11-22 [facility] 1.2.840.114 [id number] Univers 10:25:00 23:59:00 Encounter Rambo W SPECIALTY 350.1.13.10 [place] [phone] Ca nuzhat MARCUM 809 [facility] 2020-11-22 2020-11-22 Office [facility] 1.2.840.114 [id number] Univers 10:10:49 11:03:51 Visit Rambo W SPECIALTY 350.1.13.10 it[place] [phone] Ca nuzhat MARCUM 198 [facility] 2020-11-22 2020-11-22 [facility] [id number] Univers 10:30:00 10:30:00 RAMBO schaeffer of [facility] 2020-11-22 2020-11-22 [facility] 1.2.840.114 [id number] Univers 10:20:00 10:24:00 Encounter Rambo W SPECIALTY 350.1.13.10 [place] [phone] Ca nuzhat MARCUM 809 [facility] 2020-11-22 2020-11-22 Case [facility] 1.2.840.114 [id number] Univers 00:00:00 00:00:00 Management Rambo W SPECIALTY 350.1.13.10 [place] [phone] Ca nuzhat MARCUM 198 [facility] 2020-11-08 2020-11-08 Refill Vasquez, [facility] 1.2.840.114 [id number] Univers 00:00:00 00:00:00 Rambo W SPECIALTY 350.1.13.10 [place] [phone] Ca nuzhat MARCUM 198 [facility] 2020-11-01 2020-11-01 Telephone [facility] 1.2.840.114 [id number] Univers 00:00:00 00:00:00 Rambo W SPECIALTY 350.1.13.10 [place] [phone] Ca nuzhat MARCUM 198 [facility] 2020-10-21 2020-10-21 [facility] 1.2.840.114 [id number] [facility] 00:00:00 00:00:00 Rambo W SPECIALTY 350.1.13.10 [place] [phone] Ca nuzhat MARCUM 198 [facility] 2020-10-18 2020-10-18 [facility] 1.2.840.114 [id number] [facility] 10:10:00 23:59:00 Encounter Rambo W SPECIALTY 350.1.13.10 [place] [phone] Ca nuzhat MARCUM 809 [facility] 2020-10-18 2020-10-18 Office [facility] 1.2.840.114 [id number] Univers 10:00:04 10:40:53 Visit Rambo W SPECIALTY 350.1.13.10 it[place] [phone] Ca nuzhat MARCUM 198 [facility] 2020-10-18 2020-10-18 [facility] 1.2.840.114 [id number] Univers 10:05:00 10:09:00 Encounter Rambo W SPECIALTY 350.1.13.10 [place] [phone] Ca nuzhat MARCUM 809 [facility] 2020-10-18 2020-10-18 [facility]patient [facility] [id number] Univers 10:00:00 10:00:00 RAMBO schaeffer of [facility] 2020-10-10 2020-10-10 Outpatient R VIET [facility] [id number] Univers 14:00:00 14:00:00 AVILA laury [facility] 2020-10-10 2020-10-10 Orders Doctor DILCIA 1.2.840.114 [id number] Univers 00:00:00 00:00:00 Only Unassigned, ORLIN 350.1.13.10 ity of [place] [facility] 4.2.7.2.686 Chao as [phone] [facility] [address] 2020-10-10 2020-10-10 Telephone Pedro [facility] 1.2.840.114 [id number] Univers 00:00:00 00:00:00 Rambo NUGENT 350.1.13.10 it y [place] [phone] Ca dical [address] 2020-10-08 2020-10-08 Orders Doctor DILCIA 1.2.840.114 [id number] Univers 00:00:00 00:00:00 Only Unassigned, ORLIN 350.1.13.10 [place] of [place] [facility] 4.2.7.2.686 [place]ao as [phone] [facility] [address] 2020-10-03 2020-10-03 Transition Yarelis Vazquez 1.2.840.114 [id number] Univers 00:00:00 00:00:00 of Care Aline Mendez 350.1.13.10 i ty of [place]2.7.2.[place] [phone] [facility] [address] 2020-10-03 2020-10-03 Abstract James [facility] 1.2.840.114 [id number] Univers 00:00:00 00:00:00 , Jeremy SPECIALTY 350.1.13.10 it[place] [phone] Ca dical VICTORY 198 [facility] 2020-09-27 2020-10-02 Hospital Mo Sheyla 1.2.840.114 [id number] Univers 16:52:00 19:00:00 Encounter Alo Lara 350.1.13.10 ity of [facility] 4.2.7.2.686 [place]ao as [phone] [facility] [address] [place] 2020-09-27 2020-09-27 Emergency X SINGER [facility] ERT [id number] Univers 13:03:00 16:05:00 KYLE ittabby [facility] 2020-09-27 2020-09-27 Emergency Kyle Ralph [facility] 1.2.840. 114 [id number] Univers 13:03:00 16:05:00 Demario Purdy 350.1.13.1 0 ity of [place] 4.2.7.2.686 [place] [facility] [phone] [place] 603304 [place] 2020-04-19 2020-04-19 Laboratory Lab, [facility] Pob I [facility] 1.2. 840.114 [id number] Univers 16:32:42 16:52:42 Only Cristy Ingram 350.1.13.10 ity [facility] 4.2.7.2.686 [place] Professio [phone] [address] Office Building One 2020-04-19 2020-04-19 Outpatient Deshaun INGRAM [facility] [id number] Univers 16:40:00 16:40:00 CRISTY schaeffer [facility] 2020-04-19 2020-04-19 Letter Doctor DILCIA 1.2.840.114 [id number] Univers 00:00:00 00:00:00 (Out) Unassigned, ORLIN 350.1.13.10 ity of [place] [facility] 4.2.7.2.686 [place]ao as [phone] [facility] [address] [place] 2020-04-05 2020-04-05 Outpatient Chopra, [facility] [id number] [facility] 11:00:00 11:00:00 Stevie Garcia [facility] Results Test Description Test Time Test Comments Results Result Comments Source POC glucose 2023-02-18 13:31:00 Test Item Value Reference Range Interpretation Comme nts POC glucose (test code = 190 mg/dL 65-99 H Ope rator Name: Greg CaseyFransisco [id number]) ID: [id number] hartable: [facility] 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 Interpretation (test code = Abnormal 52677-0) [facility] 12 [id number] 21:59:53 Test Item Value Reference Range Interpretation Comments Ventricular rate (test 98 code = 253) Atrial rate (test code = 98 255) IA interval (test code = 184 266) QRSD interval (test code 100 = 260) QT interval (test code = 374 264) QTC interval (test code = 477 265) P axis 1 (test code = 55 267) QRS axis 1 (test code = 22 268) T wave axis (test code = 7 270) EKG impression (test code Normal sinus = 273) rhythm-Electronicall y Signed By Fahad Benoit MD ([id number]) on 02/15/2023 4:59:50 PM [facility] [id number] 00:01:00 Test Item Value Reference Range Interpretation Comments Product name (test code Red Blood Cells -1, = 25) Leukored Unit number (test code [id number] = 3828414) Product code (test code O5436F26 = 3092) Dispense status (test Returned to not code = 24) transfused Blood expiration date (test code = 302) Blood type code (test 5100 code = 308) Blood type (test code = O POSITIVE 1314) Compatibility (test Compatible code = 6400) [facility] FallsActivated clotting [id number] 19:10:00 Test Item Value Reference Range Interpretation Comments Activated clotting time 99 See_Comment Oper ator Name: Pacheco (test code = 5298) Bee ce ID: [id number] [Automated mess age] The system which ge nerated this result tra nsmitted reference range : 96 - 152 sec. The refere nce range was not used to interpret this result as normal/abnormal . [facility] FallsArterial blood gas, [id number] 18:13:00 Test Item Value Reference Range Interpretation Comments pH, arterial (test code 7.39 7.35-7.45 = 2744-1) pCO2, arterial (test 39 See_Comment [Autom ated message] code = 2019-8) The system wh ich generated this result transmitted ref erence range: 35 - 45 mmHg. The reference r coleman was not used to interpret this result as normal/abnor mal. pO2, arterial (test code 358 See_Comment H [A utomated message] = 8233-7) The system whic h generated this result transmitted ref erence range: 80 - 90 mmHg. The reference r coleman was not used to interpret this result as normal/abnor mal. Temperature, Celsius 35.8 Degrees C (test code = 8310-5) O2 saturation, arterial 100 % 95-100 (test code = 2708-6) pH, arterial corrected 7.41 (test code = 16430-4) pCO2, arterial corrected 37 mmHg (test code = 12726-6) pO2, arterial corrected 352 mmHg (test code = 74560-7) Base excess, arterial -1 See_Comment [Auto mated message] (test code = 1925-7) The sys tem which generated this result transmitted ref erence range: -2 - 2 m Eq/L. The reference r coleman was not used to interpret this result as normal/abnor mal. Lab Interpretation (test Abnormal code = 61789-7) [facility] FallsGlucose level, [id number] 18:13:00 Test Item Value Reference Range Interpretation Comments Glucose, syringe (test code = 166 mg/dL 65-99 H 2345-7) Lab Interpretation (test code = Abnormal 80091-4) [facility] FallsHemoglobin, [id number] 18:13:00 Test Item Value Reference Range Interpretation Comments Hemoglobin, syringe (test code = 9.4 g/dL 14.0-18.0 L 718-7) Lab Interpretation (test code = Abnormal 31368-1) [facility] FallsPotassium, [id number] 18:13:00 Test Item Value Reference Range Interpretation Comments Potassium, syringe 4.6 See_Comment [Automat ed message] The (test code = 16647-1) system which generated this result tra nsmitted reference range : 3.5 - 5.0 mEq/L. The refe rence range was not used to interpret this result as normal/abnormal . [facility], [id number] 18:13:00 Test Item Value Reference Range Interpretation Comments Sodium, syringe (test 136 See_Comment [Auto mated message] The code = 2947-0) system which generated this result tra nsmitted reference range : 135 - 148 mEq/L. The refe rence range was not used to interpret this result as normal/abnormal . [facility] arterial blood gas, corrected and [id number] 17:31:00 Test Item Value Reference Range Interpretation Comments pH, arterial (test 7.35 7.35-7.45 code = 2744-1) pCO2, arterial (test 45 See_Comment [Autom ated code = 2019-) message] The system which generated this result transmit maribel reference range : 35 - 45 mmHg. T he reference range was not used to interpret this result as normal/abnormal . pO2, arterial (test See_Comment H [Automa maribel code = 2703-7) message] The system which generated this result transmit maribel reference range : 80 - 90 mmHg. T he reference range was not used to interpret this result as normal/abnormal . Temperature, Celsius 37.0 Degrees C (test code = 8310-5) O2 saturation, 95-100 arterial (test code = 2708-6) pH, arterial 7.35 corrected (test code = 43906-9) pCO2, arterial 45 mmHg corrected (test code = 00662-1) pO2, arterial Unable to mmHg Windows Vmware Administrator ID: corrected (test code report Pacheco = 88919-6) CraigDevice ID: [id number] Base excess, arterial -1 See_Comment [Auto mated (test code = 1925-7) message ] The system which generated this result transmit maribel reference range : -2 - 2 mEq/L. T he reference range was not used to interpret this result as normal/abnormal . Hemoglobin, syringe 10.1 g/dL 14.0-18.0 L (test code = 718-7) Potassium, syringe 4.3 See_Comment [Automat ed (test code = 61067-4) messag e] The system which generated this result transmit maribel reference range : 3.5 - 5.0 mEq/L . The reference range was not u sed to interpret th is result as normal/abnormal . Sodium, syringe (test 138 See_Comment [Auto mated code = 2947-0) message] The system which generated this result transmit maribel reference range : 135 - 148 mEq/L . The reference range was not u sed to interpret th is result as normal/abnormal . Ionized calcium, 1.14 mmol/L 1.11-1.32 arterial (test code = 32355-5) Glucose, syringe 158 mg/dL 65-99 H (test code = 2345-7) Lactic acid, syringe 1.3 mmol/L 0.5-2.2 (test code = 10629-1) Lab Interpretation Abnormal (test code = 37747-9) [facility] [id number] 18:56:47 Test Item Value Reference Range Interpretation Comments Ventricular rate (test 82 code = 253) Atrial rate (test code 82 = 255) IA interval (test code 226 = 266) QRSD interval (test 100 code = 260) QT interval (test code 396 = 264) QTC interval (test code 462 = 265) P axis 1 (test code = 52 267) QRS axis 1 (test code = 38 268) T wave axis (test code 70 = 270) EKG impression (test Sinus rhythm with 1st code = 273) degree AV block with frequent premature ventricular complexes-Electronical ly Signed By Fahad Benoit MD ([id number]) on 02/03/2023 1:56:45 PM [facility] diffusion, lung [id number] 18:37:53 Test Item Value Reference Range Interpretation Comments VC Pre (test code = 4.49 L 4.41-6.69 5374) VC Predicted (test 5.54 code = 5372) VC LLN (test code = 4.41 5373) VC % Pre of Predicted 81.2 % (test code = 5375) TLC Pre (test code = 7.01 L 6.52-9.85 5416) TLC Predicted (test 8.17 code = 5414) TLC LLN (test code = 6.52 5415) TLC % Pre of 85.7 % Predicted (test code = 5417) RV Pre (test code = 2.51 L 1.65-3.96 5402) RV Predicted (test 2.70 code = 5400) RV LLN (test code = 1.65 5401) RV % Pre of Predicted 93.0 % (test code = 5403) RV % TLC Pre (test 35.88 % 22.21-43.04 code = 5409) RV % TLC Predicted 32 (test code = 5407) RV % TLC LLN (test 22 code = 5408) RV % TLC % Pre of 110.7 % Predicted (test code = 5410) R0.5IN Pre (test code 1.33 See_Comment [Auto mated message] = 5514) The system [employer] generated this result transmitted ref erence range: 3.06 - 3 .06 cmH2O*s/L. The reference range was not used to interpr et this result as normal/abnormal . R0.5IN Predicted 3.06 (test code = 5512) R0.5IN LLN (test code 3.06 = 5513) R0.5IN % Pre of 43.5 % Predicted (test code = 5515) FRCpl Pre (test code 3.49 L 3.03-6.05 = 5388) FRCpl % Predicted 4.37 (test code = 5386) FRCpl % LLN (test 3.03 code = 5387) FRCpl % Pre of 79.8 % Predicted (test code = 5389) ERV Pre (test code = 0.97 L 0.54-3.04 5381) ERV Predicted (test 1.56 code = 5379) ERV LLN (test code = 0.54 5380) ERV % Pre of 62.3 % Predicted (test code = 5382) IC Pre (test code = 3.52 L 2.78-5.12 5395) IC Predicted (test 3.98 code = 5393) IC LLN (test code = 2.78 5394) IC % Pre of Predicted 88.6 % (test code = 5396) sR0.5IN Pre (test 5.72 See_Comment [Automate d message] code = 5521) The system [employer] generated this result transmitted ref erence range: 12.00 - 12.00 cmH2O*s. The re ference range was not u sed to interpret this result as normal/abnor mal. sR0.5IN LLN (test 12.00 code = 5520) sR0.5IN Predicted 12.00 (test code = 5519) sR0.5IN % Pre of 47.7 % Predicted (test code = 5522) Raw Pre (test code = 3.17 See_Comment [Autom ated message] 5507) The system [employer] generated this result transmitted ref erence range: 3.06 - 3 .06 cmH2O*s/L. The reference range was not used to interpr et this result as normal/abnormal . Raw Predicted (test 3.06 code = 5505) Raw LLN (test code = 3.06 5506) Raw % Pre of 103.7 % Predicted (test code = 5508) sGaw Predicted (test 0.07 See_Comment [Autom ated message] code = 5528) The system [employer] generated this result transmitted ref erence range: 0.08 - 0 .08 1/(cmH2O*s). Th e reference range was not used to interpr et this result as normal/abnormal . sGaw Predicted (test 0.08 code = 5526) sGaw LLN (test code = 0.08 5527) sGaw % Pre of 87.9 % Predicted (test code = 5529) FEV1 Pre (test code = 3.39 L 2.85-4.80 5348) FEV1 Predicted (test 3.86 code = 5302) FEV1 LLN (test code = 2.85 5347) FEV1 % Pre of 88.0 % Predicted (test code = 5308) FVC Pre (test code = 4.49 L 3.84-6.37 5354) FVC Predicted (test 5.09 code = 5307) FVC LLN (test code = 3.84 5353) FVC % Pre of 88.2 % Predicted (test code = 5355) FEV1/FVC % Pre (test 75.54 % 63.55-87.07 code = 5361) FEV1/FVC % Predicted 76 (test code = 5359) FEV1/FVC % LLN (test 64 code = 5360) FEV1/FVC % Pre of 99.3 % Predicted (test code = 5362) FEF 25-75% Pre (test 2.63 L/s 1.39-5.19 code = 5547) FEF 25-75% Predicted 2.98 (test code = 5546) FEF 25-75% LLN (test 1.39 code = 5545) FEF 25-75% % Pre of 87.9 % Predicted (test code = 5548) PEF Pre (test code = 11.13 L/s 7.25-12.42 5367) PEF Predicted (test 9.84 code = 5310) PEF LLN (test code = 7.25 5366) PEF % Pre of 113.1 % Predicted (test code = 5368) DLCO Pre (test code = 22.47 See_Comment [Auto mated message] 5423) The system [employer] generated this result transmitted ref erence range: 22.25 - 39.05 ml/(min*mmHg). The reference range was not used to interpr et this result as normal/abnormal . DLCO Predicted (test 29.94 code = 5421) DLCO LLN (test code = 22.25 5422) DLCO % Pre of 75.0 % Predicted (test code = 5424) DLCOc Pre (test code 23.37 See_Comment [Autom ated message] = 5430) The system [employer] generated this result transmitted ref erence range: 22.25 - 39.05 ml/(min*mmHg). The reference range was not used to interpr et this result as normal/abnormal . DLCOc Predicted (test 29.94 code = 5428) DLCOc LLN (test code 22.25 = 5429) DLCOc % Pre of 78.1 % Predicted (test code = 5431) DL/VA Pre (test code 3.59 See_Comment [Autom ated message] = 5437) The system [employer] generated this result transmitted ref erence range: 3.04 - 5 .16 ml/(min*mmHg*L) . The reference range was not used to interpr et this result as normal/abnormal . DL/VA Predicted (test 4.05 code = 5435) DL/VA LLN (test code 3.04 = 5436) DL/VA % Pre of 88.4 % Predicted (test code = 5438) KCOc SB Pre (test 3.73 See_Comment [Automate d message] code = 5535) The system [employer] generated this result transmitted ref erence range: 3.04 - 5 .16 ml/(min*mmHg*L) . The reference range was not used to interpr et this result as normal/abnormal . KCOc SB Predicted 4.05 (test code = 5533) KCOc SB LLN (test 3.04 code = 5534) [facility] SB % Pre of 92.0 % Predicted (test code = 5536) [facility] SB Pre (test code 6.27 L 6.00-8.97 = 5444) [facility] SB Predicted (test 7.43 code = 5442) [facility] SB LLN (test code 6.00 = 5443) VA SB % Pre of 84.3 % Predicted (test code = 5445) Hb Pre (test code = 13.30 g(Hb)/dL 5540) [facility] [id number] 02:53:00 Test Item Value Reference Range Interpretation Comments Cholesterol, total 126 mg/dL <=200 (test code = 2093-3) HDL cholesterol 32 mg/dL See_Comment L [Automated (test code = 2085-9) message ] The system which generated this result transmitted reference range : > OR = 40. The reference range was not used to interpret this result as normal/abnormal . Triglycerides (test 130 mg/dL <=150 code = 2571-8) LDL cholesterol 73 mg/dL (calc) Reference ra nge: calculated (test <100 Desira ble code = 53546-1) range <100 m g/dL for primary prevention; <70 mg/dL for patients with C HD or diabetic patients with > or = 2 CHD risk factors. LDL-C is now calculated using the Desean-Ricardo calculation, which is a validated novel method providin g better accuracy than the Friedewald equation in the estimation of LDL-C. Desean S S et al. ERLIN. 2013;310(19): 8762-5887 (http://educati on .Think [employer]ide[employer] .com/faq/IMQ860 ) Cholesterol/HDL 3.9 See_Comment [Automated ratio (test code = message] The 9830-1) system which generated this result transmitted reference range : <5.0 (calc). Th e reference range was not used to interpret this result as normal/abnormal . Non-HDL cholesterol 94 See_Comment For aneesh ents with (test code = diabetes plus 1 27720-7) major ASCVD ris k factor, treatin g to a non-HDL-C goal of <100 mg/dL (LDL-C of <70 mg/dL) is considered a therapeutic option. [Automated message] The system which generated this result transmitted reference range : <130 mg/dL (calc). The reference range was not used to interpret this result as normal/abnormal . SUYAPA (test code = FASTING:YES SUYAPA) FASTING: YES RAC (test code = Performing RAC) Organization Information: Site ID: YANELI [facility] Address: [address] [place] [id number] Director: Stevie Chapman Lab Interpretation Abnormal (test code = 68041-5) [facility] function [id number] 02:53:00 Test Item Value Reference Range Interpretation Comments Protein (test code 6.8 g/dL 6.1-8.1 = 2885-2) Albumin, S (test 4.0 g/dL 3.6-5.1 code = 175-7) Globulin, total 2.8 See_Comment [Automated (test code = message] The ) system which generated this result transmitted reference range : 1.9 - 3.7 g/dL (calc). The reference range was not used to interpret this result as normal/abnormal . Albumin/globulin 1.4 See_Comment [Automated ratio (test code = message] The ) system which generated this result transmitted reference range : 1.0 - 2.5 (calc ). The reference range was not used to interpr et this result as normal/abnormal . Total bilirubin 0.6 mg/dL 0.2-1.2 (test code = 1974-10) Bilirubin direct 0.1 mg/dL See_Comment [Automated (test code = message] The 1968-03) system which generated this result transmitted reference range : < OR = 0.2. The reference range was not used to interpret this result as normal/abnormal . Bilirubin, 0.5 See_Comment [Automated indirect (test message] The code = 1970-09) system which generated this result transmitted reference range : 0.2 - 1.2 mg/dL (calc). The reference range was not used to interpret this result as normal/abnormal . Alkaline 61 U/L 35-144 phosphatase (test code = 6768-6) AST (test code = 14 U/L 10-35 1920-8) ALT (test code = 18 U/L 9-46 1742-6) SUYAPA (test code = FASTING:YES SUYAPA) FASTING: YES RAC (test code = Performing RAC) Organization Information: Site ID: YANELI [facility] Address: [address] [place] [id number] Director: Stevie Chapman [facility]em[facility] [id number] 02:53:00 Test Item Value Reference Interpretation Comments Range Hemoglobin A1C 5.9 See_Comment H For someone kristen jaramillo (test code = known diabetes, a 4548-4) hemoglobin A1c value between 5.7% an d 6.4% is consist ent withprediabetes and should be confi rmed with a follow-u p test. For someo ne with known diab etes, a value <7%indicates that their diabetes is well controlled . X7qrewzpph shou ld be individualized based on duration ofdiabetes, age , comorbid condit ions, and otherconsiderat ions. This assay resu lt is consistent with an increased risko f diabetes. Curre ntly, no consensus ex ists regarding use ofhemoglobin A1 c for diagnosis of diabetes for children. [Auto mated message] The sy stem which generated this result transmit maribel reference range : <5.7 % of total Hgb. The reference r coleman was not used to interpret this result as normal/abnormal . SUYAPA (test code = FASTING:YES SUYAPA) FASTING: YES RAC (test code = Performing RAC) Organization Information: Site ID: Rosalia Name: [facility] Address: [address] [place] [address] Director: Stevie Chapman Lab Interpretation Abnormal (test code = 62014-6) [facility] FallsThyroid stimulating [id number] 02:53:00 Test Item Value Reference Range Interpretation Comments TSH (test code = 4.98 See_Comment H [Automated 3016-3) message] The system which generated this result transmitted reference range : 0.40 - 4.50 mIU/L. The reference range was not used to interpret this result as normal/abnormal . SUYAPA (test code = FASTING:YES SUYAPA) FASTING: YES RAC (test code = Performing RAC) Organization Information: Site ID: IRISHA Name: [facility] Address: [address] [place] [address] Director: Stevie Chapman Lab Interpretation Abnormal (test code = 08544-1) [facility] [id number] 19:09:00 Test Item Value Reference Range Interpretation Comments POC creatinine (test 0.9 mg/dl 0.7-1.2 Operato r Name: Praveena code = 89026-7) Taylor Petersen D: [id number] [facility] Notes Date/Time Note Provider Source 2020-04-05 08:34:00-00:00 [id number] [place] [address] PATIENT NAME: GHAZALA SANDERS ADMIT DATE: 04/05 ACCOUNT NO: [id number] ROOM NO: AGE: 59 REPORT TYPE: OPERATIVE REPORT SEX: M ADMITTING PHYSICIAN: ATTENDING PHYSICIAN:Stevie Chopra MD OPERATION DATE: 04/05/2020 PREOPERATIVE DIAGNOSIS: Right Achilles tendon ru pture. POSTOPERATIVE DIAGNOSIS: Right Achilles tendon r upture, M66.369. PROCEDURE PERFORMED: Primary repair, right Achil les tendon rupture, 25152. ANESTHESIA: General. TOURNIQUET TIME: 20 minutes. ESTIMATED BLOOD LOSS: None. SURGEON: Stevie Chopra MD MANAGER [place]ISS[place]: Brenton Starr, OPA/LSA CLINICAL INDICATIONS: Mr. Sanders is a 59-year-o ld male from [place], [place], who has been having progressive and sever e pain involving his right ankle. He injured the ankle approximately 2 week s ago. Clinical as well as radiographic evaluation demo nstrated a complete rupture of the Achilles tendon. He is admitted for primary repair. PROCEDURE IN DETAIL: PRIMARY REPAIR, RIGHT ACHIL LES TENDON RUPTURE, 13743. Mr. Sanders was brought to [facility] operative suite, at which time, he was placed in supine position on the OR table. Routine monitor s were established. General anesthesia was delivered. Af ter satisfactory induction of general anesthesia, a tourniquet was applied to the patient's right lo wer extremity per Mr. Starr. At this time, [facility] patient was transferred into the operating table in the prone position, pulse s were checked and noted to be patent x4. The right lower extremity was then circumferential ly prepped and draped in usual sterile fashion per Mr. Starr. The leg was then el evated, exsanguinated, tourniquet insufflated to 300 mmHg. A lo ngitudinal incision was made along the medial aspect of the Achilles, peritenon divided in line with the Achilles tendon. Intrasubstance rupture was noted to the tendon. Debridement was performed to any and all pat hologic tissue. A #2 FiberWire suture was placed in a modified Krackow fashion to both proxi mal and distal ends of the tendon. The tendon was then anatomically repaired without an y tension. The paratenon was then repaired with a vertical mattress 4-0 Vicry l suture. Copious antibiotic lavage was then performed to the surgical site. Skin closure was performed with PATIENT NAME: GHAZALA SANDERS [id number] interrupted subcuticular 2-0 Vicryl, followed by vertical mattress 4-0 nylon suture per Mr. Sernaariellanasir. Sterile dressing was applied by Daphneariellanasir. The patient was then placed in a well-padded short leg posterior splint with the ankle in approximately 20 degrees of equ inus. The patient was then transferred into the supine position, extubated, taken to re covery room awake and alert without any anesthetic or operative complication s. At the end of the case, sponge and needle counts were correct x2. During the procedure, Mr. Elli georges was invaluable in positioning the patient with preparation and draping of the extremity. Dimitrios gramajo was also responsible for providing surgical exposure throughout the proce dure, which greatly expedited the performance of the procedure in addition to protection of neurovascular structures. Finally, he was responsible for clos ure of the postoperative incisions and application of postoperative dress ing and splint. Dictated By: Stevie Chopra MD WT: OP:ROSE/MADELEINE/ASHUTOSH Conf#: [id number]/DID#: [id number] Authenticated by Stevie Chopra MD On 0 09:29:51 AM Electronically Signed by Stevie Chopra MD on 0 04/05/20 at 0930 PATIENT NAME: GHAZALA SANDERS [id number] 08:17:00-00:00 [facility] Brief Op Note REPORT#:[id number] REPORT STATUS: Signed DATE:04/05/20 TIME: 816 PATIENT: GHAZALA SANDERS UNIT #: [id number] ROOM/BED: : 58 AGE: 59 SEX: M ATTEND: Leandro Chopra MD ADM AUTHOR: Stevie Chopra MD * ALL edits or amendments must be made on the el [employer]/computer document * Op/Inv Proc Note - Brief Pre-procedure diagnosis: right Tayler's tendon rupture Post-procedure diagnosis: same as pre procedure dx Procedures performed: Primary repair Tayler's tendon 83482 Primary Surgeon: Nav Gill Net Stringer(s): Ro OPA/LSA Findings: as above Complications: none Estimated blood loss in ml's: none Specimens removed/altered: none Electronically Signed by Stevie Chopra MD on at 0819 RPT #:[id number] END OF REPORT 2020-04-03 12:00:00-00:00 [id number] [facility] [place] [address] PATIENT NAME: GHAZALA SANDERS ADMIT DATE: ACCOUNT NO: [id number] ROOM NO: AGE: 59 REPORT TYPE: HISTORY AND PHYSICAL SEX: M ADMITTING PHYSICIAN: ATTENDING PHYSICIAN:Stevie Chopra MD ADMISSION DATE: 04/05/2020 ADMITTING DIAGNOSIS: Traumatic rupture, right Ac hilles tendon, M66.369. HISTORY OF PRESENT ILLNESS: Mr. Sanders is a 59-year-old male, who sustained a traumatic injury to his right ankle on 0. As a result, he has sustained a full-thickness tear of the Achilles tendon. He is admitted for primary repair. PAST MEDICAL HISTORY: Hypertension, renal stones , and reflux. PAST SURGICAL HISTORY: Previous surgeries includ e knee arthroscopy and total knee arthroplasty. FAMILY HISTORY: Arthritis, d iabetes, hypertension, and cerebrovascular disease. SOCIAL HISTORY: He is . He drinks an occa sional cigar. He drinks an occasional glass of wine. He is employed as a ma nager. MEDICATIONS: Consist of lisinopril as well as as pirin. ALLERGIES: NO ALLERGIES ARE LISTED. REVIEW OF SYSTEMS: Negative. PHYSICAL EXAMINATION: VITAL SIGNS: He is 6 feet 2 inches tall, 115.9 k ilograms. HEENT: Within normal limits. CARDIAC: Regular rate and rhythm. No murmur. CHEST: Clear. ABDOMEN: Benign. BACK: No CVA tenderness. PERTINENT ORTHOPEDIC EVALUATION: Examination of the right ankle reveals weakness with plantar flexion. He has a positive Keenan's test. He has a palpable defect in the Achilles tendon. His dist al neurovascular status is intact. DIAGNOSTIC DATA: Radiographic evaluation is unre markable. ASSESSMENT: Traumatic rupture, right Achilles te ndon. SURGICAL PLAN: Primary repair, right Ach illes tendon rupture. I have gone over PATIENT NAME: GHAZALA SANDERS [id number] at length with the patient the associated risks involved with this procedure. He understands that these include but not limite d to bleeding, infection, neurovascular damage, painful scar, need for fur ther operative intervention, failure of repair, loss of motion, difficulty wi th wound healing, deep vein thrombi leading to pulmonary emboli along with c omplications secondary to anesthesia. Mr. Sanders further understands that there are absolutely no guarantees or warranties stefani t he will be pain free as a result of the procedure. He accepts these risks and gives his informed c onsent to proceed. Dictated By: Stevie Chopra MD WT: HP:ROSE/MADELEINE/ASHUTOSH Conf#: [id number]/DID#: [id number] Authenticated by Stevie Chopra MD On 0 07:05:58 AM Electronically Signed by Stevie Chopra MD on 0 04/04/20 at 0706 PATIENT NAME: GHAZALA SANDERS [id number]
[2023-03-02] MEDS ORDERED: NA CHLORIDE 0.9% 500 ML ONE (14:04)
[2023-03-02 14:15] LABS: Absolute Lymphocytes (CBC) 1.1 K/uL (0.7-4.9); Lymphocytes % 14.3 % (15.3-44.8); MCV 86.5 fL (80-100); MPV 8.1 fL (7.6-11.3)
[2023-03-02 14:24] LABS: Protime INR 1.33
[2023-03-02 14:36] LABS: Potassium 4.1 mEq/L (3.5-5.1); Troponin High Sensitivity 42.2 pg/mL (<58.9)
--- NOTE | 2023-03-02 15:32 | RAD REPORT ---
EXAM DESCRIPTION: CT - Chest For Pe Angio - 03/02/2023 2:50 pm CLINICAL HISTORY: dizziness, hypotension, recent CABG COMPARISON: No comparisons TECHNIQUE: Thin axial CT images of the chest were obtained following administration of 100 mL Isovue 370 IV contrast. Multiplanar reconstructions, and maximum intensity projection reconstructions were generated and reviewed. Exam utilizes a protocol for optimal evaluation of pulmonary arterial tree. All CT scans are performed using dose optimization technique as appropriate and may include automated exposure control or mA/KV adjustment according to patient size. FINDINGS: Pulmonary arteries are normal. No emboli or other suspicious finding. No acute or signific ant aorta findings. No mass or infiltrate in the lung parenchyma. Subsegmental mild dependent atelectasis more pronounced on the left. Small left layering pleural effusion. No right effusion. No pneumothorax. Recent mediastinal postoperative changes related to CABG. Left atrial appendage occlusion device in p lace. No abnormal mediastinal or hilar masses or lymphadenopathy seen. No chest wall mass or abnormal axilliary lymphadenopathy. IMPRESSION: No evidence of acute central pulmonary emboli. Trace left effusion and sequelae of recent coronary artery bypass grafting. No other acute findings.
--- NOTE | 2023-03-02 15:51 | EDPHYS ---
Physician Documentation [facility] Name: Harriet Sanders Age: 62 yrs Sex: Male : 1960 Arrival Date: 03/02/2023 Time: 13:34 Bed 8 Private MD: ED Physician Henry Marroquin HPI: 03/02 14:05 This 62 yrs old Male presents to ER via Ambulatory with complaints of dizziness, low BP.rn 14:05 The patient presents with dizziness, feeling faint, lightheadedness. Onset: The rn symptoms/episode began/occurred just prior to arrival. Modifying factors: The symptoms are alleviated by nothing, the symptoms are aggravated by nothing. Associated signs and symptoms: Pertinent negatives: abdominal pain, chest pain, confusion, diaphoresis, focal weakness, numbness, palpitations, seizure, shortness of breath, syncope. Severity of symptoms: At their worst the symptoms were mild in the emergency department the symptoms have improved. The patient has not experienced similar symptoms in the past. The patient has been recently seen by a physician:. Reports went out for a walk today, approx 15-20 min, felt lightheaded and dizzy, no syncope, no fall or collapse. No chest pain/sob/abd pain/back pain. No recent illness. No vomiting/diarrhea. Reports had CABG 3 weeks ago at [facility]. Hasn't had much appetite since surgery.. Historical: - Allergies: 13:36 No Known Allergies; mb9 - Home Meds: 13:36 aspirin 81 mg Oral chew 1 tab once daily [Active]; Colchicine Oral [Active]; carvedilol mb9 oral [Active]; atorvastatin oral [Active]; - PMHx: 13:36 GERD; Hypertension; Hypercholesterolemia; mb9 - PSHx: 13:36 Triple Bypass; mb9 - Immunization history:: Adult Immunizations up to date. - Social history:: Smoking status: Patient denies any tobacco usage or history of. - Family history:: not pertinent. - Hospitalizations: : Patient was recently seen at. ROS: 14:05 Constitutional: Negative for fever, chills, and weight loss, Eyes: Negative for injury, rn pain, redness, and discharge, Neck: Negative for injury, pain, and swelling, Cardiovascular: Negative for chest pain, palpitations, and edema, Respiratory: Negative for shortness of breath, cough, wheezing, and pleuritic chest pain, Abdomen/GI: Negative for abdominal pain, nausea, vomiting, diarrhea, and constipation, Back: Negative for injury and pain, MS/Extremity: Negative for injury and deformity, Skin: Negative for injury, rash, and discoloration, Neuro: Negative for headache, weakness, numbness, tingling, and seizure. Exam: 14:05 Constitutional: This is a well developed, well nourished patient who is awake, alert, rn and in no acute distress. Head/Face: Normocephalic, atraumatic. ENT: dry MM Chest/axilla: wound c/d/i Cardiovascular: Regular rate and rhythm. No pulse deficits. Respiratory: No increased work of breathing, no retractions or nasal flaring. Abdomen/GI: soft, non-tender Skin: Warm, dry, no cellulitis MS/ Extremity: Pulses equal, no cyanosis. Neurovascular intact. Full, normal range of motion. Equal circumference. Neuro: Awake and alert, GCS 15, oriented to person, place, time, and situation. 14:31 ECG was reviewed by the Attending Physician. rn Vital Signs: 13:38 BP 123 / 69; Pulse 79; Resp 18; Temp 99(O); Pulse Ox 96% on R/A; Weight 111.13 kg; mb9 Height 5 ft. 8 in. ; Pain 0/10; 14:02 BP 126 / 94; Pulse 79; Resp 18; Pulse Ox 93% on R/A; ld1 14:57 BP 136 / 68; Pulse 77; Resp 18; Pulse Ox 100% on R/A; mb9 15:37 BP 107 / 64; Pulse 83; Resp 16; Pulse Ox 100% on R/A; mb9 13:38 Body Mass Index 37.25 (111.13 kg, 172.72 cm) mb9 13:38 Pain Scale: Adult mb9 MDM: 13:39 Patient medically screened. rn 15:45 Differential diagnosis: cardiac arrhythmia, generalized weakness, hypovolemia, rn idiopathic dizziness, near-syncope, over medicated, dehydration, pericardial effusion, infection. Data reviewed: vital signs, nurses notes, lab test result(s), EKG, radiologic studies, plain films, and as a result, I will discharge patient. Counseling: I had a detailed discussion with the patient and/or guardian regarding: the historical points, exam findings, and any diagnostic results supporting the discharge/admit diagnosis, lab results, radiology results, the need for outpatient follow up, to return to the emergency department if symptoms worsen or persist or if there are any questions or concerns that arise at home. Response to treatment: the patient's symptoms have markedly improved after treatment, and as a result, I will discharge patient. Special discussion: I discussed with the patient/guardian in detail that at this point there is no indication for admission to the hospital. It is understood, however, that if the symptoms persist or worsen the patient needs to return immediately for re-evaluation. Based on the history and exam findings, there is no indication for further emergent testing or inpatient evaluation. I discussed with the patient/guardian the need to see the prototype sewer for further evaluation of the symptoms. ED course: Pt feels much better, stable vitals, neg ct PE, no complication from surgery, trop neg. BP improved after only fluids. states they had to reduce his coreg to half dose, may have to further reduce. Return precautions given and understood. . 03/02 13:48 Order name: Basic Metabolic Panel; Complete Time: 14:46 rn 03/02 13:48 Order name: CBC with Diff; Complete Time: 14:20 rn 03/02 13:48 Order name: NT PRO-BNP; Complete Time: 14:46 rn 03/02 13:48 Order name: PT-INR; Complete Time: 14:46 rn 03/02 13:48 Order name: Troponin HS; Complete Time: 14:46 03/02 13:48 Order name: XRAY Chest (1 view); Complete Time: 15:53 03/02 13:48 Order name: CT Chest For PE Angio; Complete Time: 15:36 rn 03/02 13:48 Order name: EKG; Complete Time: 13:49 03/02 13:48 Order name: Cardiac monitoring; Complete Time: 13:48 rn 03/02 13:48 Order name: EKG - Nurse/Tech; Complete Time: 13:48 rn 03/02 13:48 Order name: IV Saline Lock; Complete Time: 13:48 03/02 13:48 Order name: Labs collected and sent; Complete Time: 13:48 03/02 13:48 Order name: O2 Per Protocol; Complete Time: 13:48 rn 03/02 13:48 Order name: O2 Sat Monitoring; Complete Time: 13:48 rn EC:31 Rate is 80 beats/min. Rhythm is regular. QRS Rena Lara is Normal. VT interval is prolonged rn at 220 msec. QRS interval is normal. No Q waves. T waves are Inverted in leads V2, V3, V4, V5, V6. No ST changes noted. Clinical impression: NSR w/ Non-specific ST/T Changes. Interpreted by me. Reviewed by me. Administered Medications: 14:03 Drug: NS 0.9% IV 500 ml Route: IV; Rate: bolus; Site: left antecubital; mb9 Disposition Summary: 03/02/23 15:50 Discharge Ordered Location: Home rn Problem: new rn Symptoms: have improved rn Condition: Stable rn Diagnosis - Dizziness and giddiness rn - Dehydration rn - Idiopathic hypotension rn Followup: rn - With: Private Physician - When: As needed - Reason: Recheck today's complaints, Re-evaluation by your physician Discharge Instructions: - Discharge Summary Sheet rn - Dehydration, Adult rn - Dizziness rn - Coronary Artery Bypass Grafting, Care After rn Forms: - Medication Reconciliation Form rn - Thank You Letter rn - Antibiotic rn neonatal - Prescription Opioid Use rn Signatures: Dispatcher [employer] EDHenry Wiggins MD MD rn Breneman, Mary Beth, RN RN mb9
--- NOTE | 2023-03-02 15:51 | ER ---
Nurse's Notes [facility] Name: Harriet Sanders Age: 62 yrs Sex: Male : 1960 Arrival Date: 03/02/2023 Time: 13:34 Bed 8 Private MD: Diagnosis: Dizziness and giddiness;Dehydration;Idiopathic hypotension Presentation: 03/02 13:36 Chief complaint: Patient states: Dizziness that began suddenly. EMS discovered BP to be ss 60/??. Pt reports he felt find this morning, even [place] the [place] with earlier [place]. Recent hx of triple bypass. Coronavirus screen: Client denies travel out of the [place] in the last 14 days. Ebola Screen: Patient denies exposure to infectious person. Patient denies travel to an Ebola-affected area in the 21 days before illness onset. Initial Sepsis Screen: Does the patient meet any 2 criteria? No. Patient's initial sepsis screen is negative. Does the patient have a suspected source of infection? No. Patient's initial sepsis screen is negative. Onset of symptoms was March 02, 2023. 13:36 Method Of Arrival: Ambulatory ss 13:36 Acuity: WAQAS 3 ss 13:38 Coronavirus screen: Vaccine status: Patient reports receiving the 2nd dose of the covid mb9 vaccine. Ebola Screen: No symptoms or risks identified at this time. Initial Sepsis Screen: Does the patient meet any 2 criteria? No. Patient's initial sepsis screen is negative. Does the patient have a suspected source of infection? No. Patient's initial sepsis screen is negative. Risk Assessment: Do you want to hurt yourself or someone else? Patient reports no desire to harm self or others. Onset of symptoms was March 02, 2023. 13:38 Method Of Arrival: EMS: [facility] mb9 Triage Assessment: 13:49 General: Appears in no apparent distress. Behavior is calm, cooperative, appropriate mb9 for age. Pain: Denies pain. Neuro: Gabriel Agitation-Sedation Scale (RASS): 0 - Alert and Calm Level of Consciousness is awake, alert, obeys commands, Oriented to person, place, time, situation, Appropriate for age Denies dizziness. Cardiovascular: Heart tones S1 S2 present Capillary refill < 3 seconds is brisk Patient's skin is warm and dry. Rhythm is regular. Respiratory: Airway is patent Respiratory effort is even, unlabored, Respiratory pattern is regular, symmetrical, Breath sounds are clear bilaterally. Respiratory: Denies shortness of breath. GI: Abdomen is round non-distended, Bowel sounds present X 4 quads. Abd is soft and non tender X 4 quads. Patient currently denies nausea. Derm: Skin is pink, warm \T\ dry. Musculoskeletal: Range of motion: intact in all extremities. Historical: - Allergies: 13:36 No Known Allergies; mb9 - Home Meds: 13:36 aspirin 81 mg Oral chew 1 tab once daily [Active]; Colchicine Oral [Active]; carvedilol mb9 oral [Active]; atorvastatin oral [Active]; - PMHx: 13:36 GERD; Hypertension; Hypercholesterolemia; mb9 - PSHx: 13:36 Triple Bypass; mb9 - Immunization history:: Adult Immunizations up to date. - Social history:: Smoking status: Patient denies any tobacco usage or history of. - Family history:: not pertinent. - Hospitalizations: : Patient was recently seen at. Screenin:03 [facility] ED Fall Risk Assessment (Adult) History of falling in the last 3 months, mb9 including since admission No falls in past 3 months (0 pts) Confusion or Disorientation No (0 pts) Intoxicated or Sedated No (0 pts) Impaired Gait No (0 pts) Mobility Assist Device Used No (0 pt) Altered Elimination No (0 pt) Score/Fall Risk Level 0 - 2 = Low Risk Oriented to surroundings, Maintained a safe environment, Educated pt \T\ family on fall prevention, incl call for assistance when getting out of bed. Abuse screen: Denies threats or abuse. Nutritional screening: No deficits noted. Tuberculosis screening: No symptoms or risk factors identified. Assessment: 13:56 Reassessment: see triage assessment. mb9 14:45 Reassessment: No changes from previously documented assessment. Patient and/or family mb9 updated on plan of care and expected duration. Pain level reassessed. Patient is alert, oriented x 3, equal unlabored respirations, skin warm/dry/pink. Vital Signs: 13:38 BP 123 / 69; Pulse 79; Resp 18; Temp 99(O); Pulse Ox 96% on R/A; Weight 111.13 kg; mb9 Height 5 ft. 8 in. ; Pain 0/10; 14:02 BP 126 / 94; Pulse 79; Resp 18; Pulse Ox 93% on R/A; ld1 14:57 BP 136 / 68; Pulse 77; Resp 18; Pulse Ox 100% on R/A; mb9 15:37 BP 107 / 64; Pulse 83; Resp 16; Pulse Ox 100% on R/A; mb9 13:38 Body Mass Index 37.25 (111.13 kg, 172.72 cm) mb9 13:38 Pain Scale: Adult mb9 ED Course: 13:36 Patient arrived in ED. ss 13:36 Sylvia Marina, RN is Primary Nurse. mb9 13:38 Arm band placed on. mb9 13:39 Henry Marroquin MD is Attending Physician. rn 13:39 Triage completed. mb9 13:39 Maintain EMS IV. Dressing intact. Good blood return noted. Site clean \T\ dry. Gauge \T\ mb 9 site: 18 g left AC and 20 g right hand. 13:56 Placed in gown. Bed in low position. Call light in reach. Side rails up X 1. Client mb9 placed on continuous cardiac and pulse oximetry monitoring. NIBP monitoring applied. potline monitor on. 14:03 Basic Metabolic Panel Sent. mb9 14:03 CBC with Diff Sent. mb9 14:03 NT PRO-BNP Sent. mb9 14:03 PT-INR Sent. mb9 14:03 Troponin HS Sent. mb9 14:04 No provider procedures requiring assistance completed. mb9 14:36 XRAY Chest (1 view) In Process Unspecified. EDMS 14:52 CT Chest For PE Angio In Process Unspecified. EDMS 16:04 IV discontinued, intact, bleeding controlled, No redness/swelling at site. ld1 Administered Medications: 14:03 Drug: NS 0.9% IV 500 ml Route: IV; Rate: bolus; Site: left antecubital; mb9 Medication: 14:03 VIS not applicable for this client. mb9 Outcome: 15:50 Discharge ordered by . rn 16:03 Discharged to home ambulatory, with family. ld1 16:03 Condition: stable 16:03 Discharge instructions given to patient, family, Instructed on discharge instructions, follow up and referral plans. Demonstrated understanding of instructions, follow-up care. 16:04 Patient left the ED. ld1 Signatures: Dispatcher [employer] EDMS Henry Marroquin MD MD rn Barajas, Ameena, RN RN ss Nat Yo RN RN ld1 Sylvia Marina RN RN mb9 Corrections: (The following items were deleted from the chart) 14:11 13:38 Acuity: WAQAS 2 mb9 mb9
--- NOTE | 2023-03-02 15:52 | RAD REPORT ---
EXAM DESCRIPTION: RADChest Single View03/02/2023 2:34 pm CLINICAL HISTORY: dizziness, hypotension COMPARISON: Chest Single View dated 01/26/2020; Abdomen 1 View (KUB) dated 02/22/2018; Abdomen 1 View (K UB) dated 02/21/2018; CHEST SINGLE VIEW dated 11/05/2014; Chest For Pe Angio dated 03/02/2023 TECHNIQUE: Portable AP view of the chest. FINDINGS: Patchy peripheral left basilar airspace opacification. No pneumothorax or effusion. The c ardiomediastinal contours are unremarkable. IMPRESSION: Patchy peripheral left basilar airspace opacity. This probably relates to prominence of epicardial fat and atelectasis, or correlated with subsequent CT of the same day.
[2023-03-02 16:48] VITALS: TEMP 99
[2023-03-02 16:50] VITALS: O2SAT 100
[2023-03-02 16:52] VITALS: BP 107/64
--- NOTE | 2023-03-03 08:19 | EKG ---
Test Date: 2023-03-02 Test Time: 13:44:39 [employer]oto [employer]er Operator: MB MEASUREMENT RESULTS: Intervals: Rate: 80 NV: 220 QRSD: 100 QT: 406 QTc: 468 [place]: P: 66 NV: 220 QRS: 37 T: 129 INTERPRETIVE STATEMENTS: Sinus rhythm with 1st degree AV block T wave abnormality, consider anterolateral ischemia Prolonged QT Abnormal ECG Compared to ECG 01/26/2020 13:33:56 First degree AV block now present T-wave abnormality now present Prolonged QT interval now present ST (T wave) deviation no longer present Possible ischemia still present Electronically Signed On 03-03-23 08:17:29 CDT by Erlin Angulo
== END 2023-03-02 16:04 | disposition home or self-care (01) ==
LOC: ER 13:34
DX: E86.0 Dehydration (principal); I95.0 Idiopathic hypotension; I10 Essential (primary) hypertension; Z95.1 Presence of aortocoronary bypass graft; Z79.82 Long term (current) use of aspirin
CPT/HCPCS: 93005; 85025; 80048; 36415; 85610; 84484; 83880; 71275; 71045; 99285; Q9967; J7040